=== PATIENT | female | born 1990 | race Caucasian/White ===

== ENCOUNTER → 2018-12-29 17:02 | Outpatient (CLI) | payer OTHER, SELFPAY ==
--- NOTE | 2018-12-29 17:08 | DI.RAD.S_ITS ---
PROCEDURE: XR LUMBAR SPINE 2-3V INDICATIONS: Low back pain with radiculopathy TECHNIQUE: 3 views of the lumbar spine were acquired. COMPARISON: [facility], , -SPINE 2-3 VIEWS, 06/06/2012, 21:12. FINDINGS: Bones: No fracture or focal osseous destruction. Straightening of the normal lumbar lordosis. Diffuse facet arthropathy. Sclerosis and spurring. Moderate narrowing of L5-S1 disc space which is unchanged. There is mild levocurvature. No interval change Soft tissues: Overlying bowel gas pattern is normal. No suspicious soft tissue calcifications. IMPRESSION: Unchanged examination with moderate L5-S1 disc degeneration as before, and straightening of the normal lumbar lordosis. Diffuse facet arthropathy Dictated by: Yvan Wadsworth M.D. on 12/30/2018 at 9:03 Approved by: Yvan Wadsworth M.D. on 12/30/2018 at 9:04
--- NOTE | 2018-12-29 17:08 | DI.RAD.S_ITS ---
PROCEDURE: XR SACRUM COCCYX MIN 2V INDICATIONS: Sacral spine tenderness TECHNIQUE: 3 views of the sacrum and coccyx acquired. COMPARISON: None. FINDINGS: Bones: No fractures or dislocations. No suspicious bony lesions. L5-S1 disc degeneration and facet arthropathy Soft tissues: Visualized bowel gas pattern is normal. No suspicious soft tissue densities. IMPRESSION: No fracture Dictated by: Yvan Wadsworth M.D. on 12/30/2018 at 9:04 Approved by: Yvan Wadsworth M.D. on 12/30/2018 at 9:05
== END ==
PROVIDERS: PCP Family Medicine; Visit Provider Registered Nurse
DX: M54.5 Low back pain (principal); M53.3 Sacrococcygeal disorders, not elsewhere classified; M51.17 Intervertebral disc disorders with radiculopathy, lumbosacral region; M47.27 Other spondylosis with radiculopathy, lumbosacral region
CPT/HCPCS: 72100; 72220

== ENCOUNTER 2019-01-23 13:00 | Outpatient (RCR) | payer OTHER, SELFPAY ==
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
--- NOTE | 2019-01-16 13:13 | PT.OPPOC ---
Current Diagnoses Radiculopathy, lumbar region (01/16/19) Provider Visit Care Team Role Provider Type Kim Devries MD Primary Care Provider Physician Specialty: Family Practice Address: [address] [place] [address], [id number] Email: [email or web address] KARTIK Mcclain Attending Provider Advanced Laster Hand Specialty: Medical Address: [address] [place] [address], [id number] Email: Plan Of Care PT-OP-T Assessment and Plan Start: 01/16/19 07:25 Freq: Status: Active Protocol: Document 01/16/19 09:52 [facility] (Rec: 01/16/19 13:13 [facility] [id number]) Physical Therapy Assessment Rehab Potential Rehabilitation Potential Good Evaluation Complexity Number of Personal Factors/Comorbidities 3 or More Number of Body Systems Impaired 4 or More Clinical Presentation at Evaluation Evolving Impairments Impairments Activity Tolerance Balance Functional Activities Functional Mobility Gait Pain Posture ROM Soft Tissue Mobility Strength Goals strength Short Term Goal (STG) Pt will be indep with HEP. STG Duration 02/16/19 Programming Engineer Goal (LTG) Pt will have 5/5 LE strength demonstrating improved core & LE control to allow her to return to her typical active lifestyle. LTG Duration 03/18/19 posture Programming Engineer Goal (LTG) Pt will present with good posture without cueing. LTG Duration 03/18/19 sleeping Halfway Goal (LTG) Pt will be able to sleep through the night without waking d/t pain. LTG Duration 03/18/19 walking Short Term Goal (STG) Pt will be able to walk through grocery stores without inc pain. STG Duration 02/16/19 Programming Engineer Goal (LTG) Pt will be able to go for up to 1.5 mile walks without inc in pain >1 point on VAS scale. LTG Duration 03/18/19 Assessment Summary Assessment Pt presents with LBP with radiculopathy d/t bulging discs and spinal stenosis. Pt has impaired posture, LE & core strength, ROM, and gait. This is limiting her typical activities and she is unable to participate in her typical ADLs and recreation without significantly increasing her pain. Pt would benefit from skilled PT to address these deficits. Physical Therapy Plan Frequency and Duration Frequency of Treatment 2x/Week Duration of Treatment 2 months Plan of Care Start Date 01/16/19 Plan of Care End Date 03/18/19 Therapeutic Interventions Therapeutic Interventions Aquatic Therapy Balance Training Coordination Training Gait Training Home Exercise Program Joint Mobilizations Manual Therapy Neuromuscular Re-education Patient/Caregiver Education Self-Care/Home Management Soft Tissue Mobilization Taping Therapeutic Activities Therapeutic Exercises Modalities Cold Pack/Ice Massage Electric Stimulation Hot Packs Iontophoresis Traction- Mechanical Ultrasound Next Visit Focus/Plan Next Note Type Treatment Note Next Visit Plan Advance core & ROM exercises, STM to LB & hip mobs Plan of Care Dates Plan of Care Start Date 01/16/19 Plan of Care End Date 03/18/19 Please Sign and Return: I have reviewed this Plan of Care and certify that the skilled therapy services above are required to meet the patient?s needs. Physician Signature Date Printed Name and Credentials Clinical Instructor Signature Printed Name and Credentials
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
== END 2019-02-27 08:24 | disposition home or self-care (01) ==
LOC: PHYS 13:00
PROVIDERS: PCP Family Medicine; Visit Provider Registered Nurse
DX: M54.16 Radiculopathy, lumbar region (principal)
CPT/HCPCS: 97110; 97140; 97162; 97530

== ENCOUNTER 2019-02-01 11:45 | Day surgery (SDC) | payer OTHER, SELFPAY ==
[2019-01-30 15:11] VITALS: BMI 38.0
[2019-02-01] VITALS (7 sets, daily range): BP systolic 126–141; BP diastolic 67–93; PULSE 88–131; RESP 10–16; TEMP 36.2–36.4; O2SAT 99–100; BMI 37.3
--- NOTE | 2019-02-01 | DI.RAD.S_ITS ---
PROCEDURE: XR LUMBAR SPINE 2-3V INDICATIONS: MICRODISCECTOMY TECHNIQUE: 2 views of the lumbar spine were acquired. COMPARISON: [facility], MR, MR LUMBAR SPINE WITHOUT CONTRAST, 01/06/2019, 7:12. [facility], CR, XR LUMBAR SPINE 2-3V, 12/29/2018, 17:12. FINDINGS: 2 spot fluoroscopic intraoperative images demonstrating a surgical instrument with the tip projecting in the posterior paraspinal soft tissues at the level of L5-S1 disc. Dictated by: Yvan Wadsworth M.D. on 02/01/2019 at 16:05 Approved by: Yvan Wadsworth M.D. on 02/01/2019 at 16:06
[2019-02-01] MEDS: LACTATED RINGERS 1,000 ML 42 ML IV ×2 (12:57→16:10)
--- NOTE | 2019-02-01 13:06 | SUR.PREOP ---
PT REPORTS HAS CONSTANT NUMBNESS IN BACK OF LEFT THIGH AND TINGLING IN LEFT FOOT.
[2019-02-01] MEDS: CEFAZOLIN 2 GM/100 ML FROZ.PIGGY IV (14:45)
--- NOTE | 2019-02-01 14:50 | PM.PREOP ---
Pre-operative Note Interval Note History & Physical reviewed/Exam performed by Physician: Yes Changes to H&P: No
--- NOTE | 2019-02-01 15:09 | SUR.OPER ---
Prone on spine table, head in foam head support, padded chest and pelvic supports, gel pad at knees, lower legs supported by pillows; nipples, genitalia and toes free of pressure, arms secured on foam padded arm boards at <90 degrees abduction. Tape over blanket at thigh secured to table.
[2019-02-01] MEDS: methylPREDNISolone acet DEPO 40 MG/ML VIAL INJ (15:20)
[2019-02-01] MEDS: BUPIVACAINE 0.25% W/ EPI (PF) 10 ML VIAL INJ (15:21)
--- NOTE | 2019-02-01 16:17 | P.OP_ITS ---
Operative Date/Time/Diagnoses Date of procedure: 02/01/19 Time of procedure: 15:14 Pre-op diagnosis: 1. L5-S1 disc herniation with radiculopathy 2. Spinal stenosis Post-op diagnosis: same Procedure & Clinicians Procedure: 1. L5-S1 microdiscectomy 2. Utilization of microsurgical technique and operating micrcoscope Same procedure as scheduled: Yes Indications: Patient has been having chronic back pain and worsening lumbar radiculopathy. Patient failed multiple conservative management with worsening pain weakness and numbness in her lower extremity. Patient has been having difficulty performing activity of daily living. After discussing risks benefits of treatment options, patient elected proceed with surgery. Surgeon: David Downs Human Resources Hr Representative: Martina Dixon Click Yes if Unassisted: No Anesthesia Type: General Operative Notes Closure Type: primary Specimen(s): none sent Procedure in detail: Patient was seen in the preoperative area. Risks and benefits of the surgery was discussed with the patient. Informed consent was obtained from the patient and placed in the chart. Surgical site was marked. Patient was taken to the operative room. General anesthesia was administered. Prophylactic antibiotic was given to the patient less than 30 min before the incision was made. Patient was placed into a prone position on the Lencho table. Patient's back was then prepped and draped in the sterile fashion. Time- out was performed at this time. Using AP and lateral C-arm imaging the interval between L5-S1 was identified and marked on patient's back. A 1 inch incision 1 in from midline was made on the left side. The fascia was incised in line with skin incision. Globus MARS retractors was placed inside the incision and docked onto the L5 lamina. Using microsurgical technique and operating microscope, a L5 laminotomy was performed using a Kerrison rongeur. Liagamentum flavum was resected at the site of the l aminotomy. The disc space at L5-S1 was identified. Microdiscectomy was performed by incising the annulus with #11 blade. Microcurettes and pituitary was used to removed herniated disc fragments of disc from the epidural space. After the microdiskectomy was completed, the area medial lateral superior and inferior to the area of the microdiskectomy was inspected and explored using a micro curette. No other impinging structure was identified. The wound was then irrigated with sterile normal saline. 40 mg Depo-Medrol was placed into the epidural space. The deep fascia was closed with 1-0 Vicryl. The subcutaneous tissue was closed with 2-0 Vicryl. The skin was closed with skin idalia. Patient tolerated the procedure well. There were no complications. Patient was transferred recovery room in stable condition. Complications: none Condition: stable Disposition: same day surgery Plan for aftercare: Discharge to home
[2019-02-01] MEDS: fentaNYL 100 MCG/2 ML INJ 50 MCG IV ×2 (16:26→16:39)
--- NOTE | 2019-02-01 16:38 | SUR.PHASEI ---
1620 late entry able to move feet, + sensation, weak when pressing feet against hands.
--- NOTE | 2019-02-01 16:41 | SUR.PHASEI ---
Pain unchanged, Rx repeated, HOB up, drinking water, calm, pleasant.
--- NOTE | 2019-02-01 16:49 | SUR.PHASEI ---
Stable, preparing to transfer to [facility].
[2019-02-01] MEDS: HYDROCODONE/ACET 5/325 TABLET 1 TAB PO (16:54)
--- NOTE | 2019-02-01 17:00 | SUR.PHASEI ---
1649 transferred to phase II care. crackers and water given prior to PO Rx. Skin warm and dry, resp even and regular. States that pain level remains elevated, but that she has chronic pain and tolerates it well. no moaning, grimace, or other non-verbal evidence of pain. No nausea. 1658 Dwain Kirby RN assumed care.
== END 2019-02-01 17:45 | disposition home or self-care (01) ==
PROVIDERS: PCP Family Medicine; Visit Provider Orthopaedic Surgery Orthopaedic Surgery of the Spine
PROC: (CPT 63030; principal; 2019-02-01 13:45)
DX: M51.16 Intervertebral disc disorders with radiculopathy, lumbar region (principal)
CPT/HCPCS: 63030; 72100; 76000; J0690; J1030; J1100; J1885; J2250; J2405; J2704; J3010

== ENCOUNTER 2019-07-24 09:45 | Outpatient (RCR) | payer OTHER, SELFPAY ==
--- NOTE | 2019-05-15 09:47 | PT.OIE ---
Current Diagnoses Intervertebral disc disorders with radiculopathy, lumbar region (05/15/19) Difficulty in walking, not elsewhere classified (05/15/19) Abnormal posture (05/15/19) Weakness (05/15/19) Past Medical History (Last Updated 01/30/19 @ 15:15 by Betsey Ledbetter RN) Herniated disc (Acute) Lumbar radiculopathy (Acute) Numbness (Acute) Right sided sciatica (Acute) Past Surgical History (Last Updated 01/30/19 @ 15:16 by Betsey Ledbetter RN) Status post tonsillectomy and adenoidectomy Provider Visit Care Team Role Provider Type Kim Devries MD Primary Care Provider Physician Specialty: Family Practice Address: [address] [place] [address], [id number] Email: [email or web address] David Downs MD Attending Provider Physician Specialty: Orthopedic Surgery Address: [address] [place] [address], [id number] Email: [email or web address] Physical Therapy Initial Evaluation PT-OP-A Visit Information Start: 05/11/19 17:24 Freq: Status: Active Protocol: Document 05/15/19 08:11 [facility] (Rec: 05/15/19 09:42 [facility] [id number]) Out-Patient Physical Therapy Visit Information Visit Information Visit Type Initial Evaluation Visit Start Time 08:15 Visit Stop Time 09:00 Total Visit Minutes 45 Visit Number 1 Number of BELLMAKER Visits 0 PT-OP-B Current Condition Start: 05/11/19 17:24 Freq: Status: Active Protocol: Document 05/15/19 08:11 [facility] (Rec: 05/15/19 09:42 [facility] [id number]) Current Condition History of Current Condition History of Current Condition Pt reports microdiscectomy L5- S1 February 03, 2019. SHe feels like she has gotten stronger, but still has pain and numbness into her LLE. Pt reports she is cleared for bending, lifting and twisting but still feels limited. Pt reports numbness is constant and pain comes and goes in leg and back pain is constant. Pt reports swelling at the end of the day. Pt reports she has been hiking and hurts after but she pushes through. Prior Treatments and Tests MRI next week Treatment Goals Patient/Caregiver Goals Be stronger, be able to move quicker, less swelling, be able to stand longer PT-OP-C Subjective Start: 05/11/19 17:24 Freq: Status: Active Protocol: Document 05/15/19 08:11 [facility] (Rec: 05/15/19 09:42 [facility] [id number]) OP-PT Pain Assessment Location LBP Pain Location Details LBP & leg Intensity 3 Scale Used Numeric (1 - 10) Description Aching Burning Shooting Description- Other can feel cold in leg; worst 7/10 LB; 8/10 LE Frequency Constant Radiating Location lat & post thigh & calf & lat & plantar foot pain; Variations/Patterns numbness buttock, tight and lat foot Pain Aggravating Factors Activity Standing Sitting Walking Bending Lifting Other Pain Aggravating Factors heat Pain Alleviating Factors Cold Other Pain Alleviating Factors change position PT-OP-F Manual Assessment Start: 05/11/19 17:24 Freq: Status: Active Protocol: Document 05/15/19 08:11 [facility] (Rec: 05/15/19 09:42 [facility] [id number]) Manual Assessments Soft Tissue Assessment Soft Tissue Mobility Assessment tightness and tenderness of L >R QL, ES, HS, calf Joint Mobility Assessment Joint Mobility Assessment L iliac crest higher than R PT-OP-G Mobility & Gait Start: 05/11/19 17:24 Freq: Status: Active Protocol: Document 05/15/19 08:11 [facility] (Rec: 05/15/19 09:43 [facility] [id number]) OP Gait Assessment Comments Gait Comments Pt amb with excessive transverse plane motion with pelvis. Overall dec push off PT-OP-J Posture/Palpation/Skin Start: 05/11/19 17:24 Freq: Status: Active Protocol: Document 05/15/19 08:11 [facility] (Rec: 05/15/19 09:42 [facility] [id number]) Posture Evaluation Martha Postural Classification System Martha Postural Classifications Anterior/Posterior Vertebral Compression Test 0 Elbow Flexion Test 3 Lumbar Protective Mechanism Left AP 0 Lumbar Protective Mechanism Right AP 0 Lumbar Protective Mechanism Left PA 0 Lumbar Protective Mechanism Right PA 1 Leg Swing Left Hard End Feel Leg Swing Right Hard End Feel PT-OP-K Range of Motion Start: 05/11/19 17:24 Freq: Status: Active Protocol: Document 05/15/19 08:11 [facility] (Rec: 05/15/19 09:42 [facility] [id number]) Lumbar Spine Range of Motion Lumbar Spine Active Degrees Flexion 48 Extension 10 Rotation Left 35 Rotation Right 39 Lateral Flexion Left 30 Lateral Flexion Right 24 PT-OP-L Special Tests Start: 05/11/19 17:24 Freq: Status: Active Protocol: Document 05/15/19 08:11 [facility] (Rec: 05/15/19 09:42 [facility] [id number]) Special Tests Lumbar Spine Special Tests Straight Leg Raise Test Results positive R Slump Test Results positive R PT-OP-M Strength Start: 05/11/19 17:24 Freq: Status: Active Protocol: Document 05/15/19 08:11 [facility] (Rec: 05/15/19 09:42 [facility] [id number]) Hip Strength Hip Manual Muscle Testing Right Flexion (L2) 5 Normal Extension (S1) 4- Good- Abduction 4- Good- External Rotation 4+ Good+ Internal Rotation 4- Good- Left Flexion (L2) 4- Good- Extension (S1) 3+ Fair+ Abduction 3+ Fair+ External Rotation 4- Good- Internal Rotation 4- Good- Knee Strength Knee Manual Muscle Testing Right Flexion (S2) 4+ Good+ Extension (L3) 5 Normal Left Flexion (S2) 4 Good Extension (L3) 4 Good Ankle/Foot Strength Ankle and Foot Manual Muscle Testing Right Dorsiflexion (L4) 5 Normal Plantarflexion (S1) 5 Normal Inversion 5 Normal Eversion (S1) 5 Normal Left Dorsiflexion (L4) 4 Good Plantarflexion (S1) 3- Fair- Inversion 4 Good Eversion (S1) 4 Good PT-OP-Q Treatments Start: 05/11/19 17:24 Freq: Status: Active Protocol: Document 05/15/19 08:11 [facility] (Rec: 05/15/19 09:42 [facility] [id number]) Therapeutic Exercises Supine Exercises LTR Side bilateral Reps/Minutes 5 Comments focus on sequential core activation post tilt Reps/Minutes 10 Comments max cueing Standing Exercises hip flexor stretch Side bilateral Reps/Minutes 30 sec Comments max cueing for pelvic position PT-OP-T Assessment and Plan Start: 05/11/19 17:24 Freq: Status: Active Protocol: Document 05/15/19 08:11 [facility] (Rec: 05/15/19 09:42 [facility] [id number]) Physical Therapy Assessment Rehab Potential Rehabilitation Potential Good Evaluation Complexity Number of Personal Factors/Comorbidities 1-2 Number of Body Systems Impaired 4 or More Clinical Presentation at Evaluation Evolving Impairments Impairments Activity Tolerance Functional Activities Functional Mobility Gait Pain Posture ROM Soft Tissue Mobility Strength Goals strength Short Term Goal (STG) Pt will be indep with HEP STG Duration 06/15/19 Telescope Operator Goal (LTG) Pt will have 5/5 LE strength & 4/5 EFT, LPM, and VCT to show improved core and LE stability to improve ability to participate activities. LTG Duration 08/15/19 posture Mcfp Goal (LTG) Pt will present with good posture without cueing. LTG Duration 08/15/19 walking Short Term Goal (STG) Pt will be able to stand 15 min at work to do an intake without inc pain. STG Duration 07/02/19 Mcfp Goal (LTG) Pt will be able to go on hikes iwth no greater than 3/10 pain during or after LTG Duration 08/15/19 Assessment Summary Assessment Pt presents with LBP with radicular pain and numbness that has been present since Nov and have not changed since she had microdiscectomy surgery on 02/03/19. She has improved in strength d/t increasing her activity since surgery despite pain. She is still limited in activity d/t pain and is doing activities like working and walking despite her inc in pain with these activities. She has impaired posture that is likely part of what inc her pain in standing, sitting and gait activities. She has overall dec core initiation and strength and would benefit from retraining with skilled PT. Physical Therapy Plan Frequency and Duration Frequency of Treatment 1x/Week Duration of Treatment 3 months Plan of Care Start Date 05/15/19 Plan of Care End Date 08/15/19 Therapeutic Interventions Therapeutic Interventions Aquatic Therapy Balance Training Gait Training Home Exercise Program Joint Mobilizations Manual Therapy Neuromuscular Re-education Patient/Caregiver Education Self-Care/Home Management Soft Tissue Mobilization Taping Therapeutic Activities Therapeutic Exercises Modalities Cold Pack/Ice Massage Electric Stimulation Hot Packs Traction- Mechanical Ultrasound Next Visit Focus/Plan Next Note Type Treatment Note Next Visit Plan Advance core stability, nerve glides L, STM to lumbar, glutes & HS & train with tenis ball & rolling pin.
--- NOTE | 2019-05-15 09:48 | PT.OPPOC ---
Current Diagnoses Intervertebral disc disorders with radiculopathy, lumbar region (05/15/19) Difficulty in walking, not elsewhere classified (05/15/19) Abnormal posture (05/15/19) Weakness (05/15/19) Provider Visit Care Team Role Provider Type Kim Devries MD Primary Care Provider Physician Specialty: Family Practice Address: [address] [place] [address], [address] Email: [email or web address] David Downs MD Attending Provider Physician Specialty: Orthopedic Surgery Address: [address] [place] [address], [address] Email: [email or web address] Plan Of Care PT-OP-T Assessment and Plan Start: 05/11/19 17:24 Freq: Status: Active Protocol: Document 05/15/19 08:11 [facility] (Rec: 05/15/19 09:42 [facility] [id number]) Physical Therapy Assessment Rehab Potential Rehabilitation Potential Good Evaluation Complexity Number of Personal Factors/Comorbidities 1-2 Number of Body Systems Impaired 4 or More Clinical Presentation at Evaluation Evolving Impairments Impairments Activity Tolerance Functional Activities Functional Mobility Gait Pain Posture ROM Soft Tissue Mobility Strength Goals strength Short Term Goal (STG) Pt will be indep with HEP STG Duration 06/15/19 [facility] Goal (LTG) Pt will have 5/5 LE strength & 4/5 EFT, LPM, and VCT to show improved core and LE stability to improve ability to participate activities. LTG Duration 08/15/19 posture Placer Miner Goal (LTG) Pt will present with good posture without cueing. LTG Duration 08/15/19 walking Short Term Goal (STG) Pt will be able to stand 15 min at work to do an intake without inc pain. STG Duration 07/02/19 Placer Miner Goal (LTG) Pt will be able to go on hikes iwth no greater than 3/10 pain during or after LTG Duration 08/15/19 Assessment Summary Assessment Pt presents with LBP with radicular pain and numbness that has been present since Nov and have not changed since she had microdiscectomy surgery on 02/03/19. She has improved in strength d/t increasing her activity since surgery despite pain. She is still limited in activity d/t pain and is doing activities like working and walking despite her inc in pain with these activities. She has impaired posture that is likely part of what inc her pain in standing, sitting and gait activities. She has overall dec core initiation and strength and would benefit from retraining with skilled PT. Physical Therapy Plan Frequency and Duration Frequency of Treatment 1x/Week Duration of Treatment 3 months Plan of Care Start Date 05/15/19 Plan of Care End Date 08/15/19 Therapeutic Interventions Therapeutic Interventions Aquatic Therapy Balance Training Gait Training Home Exercise Program Joint Mobilizations Manual Therapy Neuromuscular Re-education Patient/Caregiver Education Self-Care/Home Management Soft Tissue Mobilization Taping Therapeutic Activities Therapeutic Exercises Modalities Cold Pack/Ice Massage Electric Stimulation Hot Packs Traction- Mechanical Ultrasound Next Visit Focus/Plan Next Note Type Treatment Note Next Visit Plan Advance core stability, nerve glides L, STM to lumbar, glutes & HS & train with tenis ball & rolling pin. Plan of Care Dates Plan of Care Start Date 05/15/19 Plan of Care End Date 08/15/19 Please Sign and Return: I have reviewed this Plan of Care and certify that the skilled therapy services above are required to meet the patient?s needs. Physician Signature Date Printed Name and Credentials Clinical Instructor Signature Printed Name and Credentials
--- NOTE | 2019-05-29 09:44 | PT.OTN ---
Current Diagnoses Intervertebral disc disorders with radiculopathy, lumbar region (05/29/19) Difficulty in walking, not elsewhere classified (05/29/19) Abnormal posture (05/29/19) Weakness (05/29/19) Physical Therapy Treatment Note PT-OP-A Visit Information Start: 05/11/19 17:24 Freq: Status: Active Protocol: Document 05/29/19 08:12 [facility] (Rec: 05/29/19 09:44 [facility] [id number]) Out-Patient Physical Therapy Visit Information Visit Information Visit Type Treatment Note Visit Start Time 08:13 Visit Stop Time 09:00 Total Visit Minutes 47 Visit Number 1 Number of CERAMIC PLATER Visits 0 PT-OP-B Current Condition Start: 05/11/19 17:24 Freq: Status: Active Protocol: Document 05/15/19 08:11 [facility] (Rec: 05/15/19 09:42 [facility] [id number]) Current Condition History of Current Condition History of Current Condition Pt reports microdiscectomy L5- S1 February 03, 2019. SHe feels like she has gotten stronger, but still has pain and numbness into her LLE. Pt reports she is cleared for bending, lifting and twisting but still feels limited. Pt reports numbness is constant and pain comes and goes in leg and back pain is constant. Pt reports swelling at the end of the day. Pt reports she has been hiking and hurts after but she pushes through. Prior Treatments and Tests MRI next week Treatment Goals Patient/Caregiver Goals Be stronger, be able to move quicker, less swelling, be able to stand longer PT-OP-C Subjective Start: 05/11/19 17:24 Freq: Status: Active Protocol: Document 05/29/19 08:12 [facility] (Rec: 05/29/19 09:44 [facility] [id number]) OP-PT Subjective Patient Comments Patient Comments Pt reports compliance with HEP . PT-OP-F Manual Assessment Start: 05/11/19 17:24 Freq: Status: Active Protocol: Document 05/15/19 08:11 [facility] (Rec: 05/15/19 09:42 [facility] [id number]) Manual Assessments Soft Tissue Assessment Soft Tissue Mobility Assessment tightness and tenderness of L >R QL, ES, HS, calf Joint Mobility Assessment Joint Mobility Assessment L iliac crest higher than R PT-OP-G Mobility & Gait Start: 05/11/19 17:24 Freq: Status: Active Protocol: Document 05/15/19 08:11 [facility] (Rec: 05/15/19 09:43 [facility] [id number]) OP Gait Assessment Comments Gait Comments Pt amb with excessive transverse plane motion with pelvis. Overall dec push off PT-OP-J Posture/Palpation/Skin Start: 05/11/19 17:24 Freq: Status: Active Protocol: Document 05/15/19 08:11 [facility] (Rec: 05/15/19 09:42 [facility] [id number]) Posture Evaluation Martha Postural Classification System [facility] Postural Classifications Anterior/Posterior Vertebral Compression Test 0 Elbow Flexion Test 3 Lumbar Protective Mechanism Left AP 0 Lumbar Protective Mechanism Right AP 0 Lumbar Protective Mechanism Left PA 0 Lumbar Protective Mechanism Right PA 1 Leg Swing Left Hard End Feel Leg Swing Right Hard End Feel PT-OP-K Range of Motion Start: 05/11/19 17:24 Freq: Status: Active Protocol: Document 05/15/19 08:11 [facility] (Rec: 05/15/19 09:42 [facility] [id number]) Lumbar Spine Range of Motion Lumbar Spine Active Degrees Flexion 48 Extension 10 Rotation Left 35 Rotation Right 39 Lateral Flexion Left 30 Lateral Flexion Right 24 PT-OP-L Special Tests Start: 05/11/19 17:24 Freq: Status: Active Protocol: Document 05/15/19 08:11 [facility] (Rec: 05/15/19 09:42 [facility] [id number]) Special Tests Lumbar Spine Special Tests Straight Leg Raise Test Results positive R Slump Test Results positive R PT-OP-M Strength Start: 05/11/19 17:24 Freq: Status: Active Protocol: Document 05/15/19 08:11 [facility] (Rec: 05/15/19 09:42 [facility] [id number]) Hip Strength Hip Manual Muscle Testing Right Flexion (L2) 5 Normal Extension (S1) 4- Good- Abduction 4- Good- External Rotation 4+ Good+ Internal Rotation 4- Good- Left Flexion (L2) 4- Good- Extension (S1) 3+ Fair+ Abduction 3+ Fair+ External Rotation 4- Good- Internal Rotation 4- Good- Knee Strength Knee Manual Muscle Testing Right Flexion (S2) 4+ Good+ Extension (L3) 5 Normal Left Flexion (S2) 4 Good Extension (L3) 4 Good Ankle/Foot Strength Ankle and Foot Manual Muscle Testing Right Dorsiflexion (L4) 5 Normal Plantarflexion (S1) 5 Normal Inversion 5 Normal Eversion (S1) 5 Normal Left Dorsiflexion (L4) 4 Good Plantarflexion (S1) 3- Fair- Inversion 4 Good Eversion (S1) 4 Good PT-OP-Q Treatments Start: 05/11/19 17:24 Freq: Status: Active Protocol: Document 05/29/19 08:12 [facility] (Rec: 05/29/19 09:44 [facility] [id number]) Therapeutic Exercises Supine Exercises rufina test Supine Exercise Name stretch Side bilateral Reps/Minutes 30 sec LTR Side bilateral Reps/Minutes 5 Comments focus on segmental core activation BKFO Supine Exercise Name focus on core engagement Side bilateral Reps/Minutes 5 post tilt Reps/Minutes 10 Comments max cueing Sitting Exercises rolling out Sitting Exercise Name use of tennis ball & rolling pin Standing Exercises hip flexor stretch Standing Exercise Name pt only able to get calf stretch Side bilateral Reps/Minutes 30 sec Comments max cueing for pelvic position Therapeutic Activity Therapeutic Activity sitting Name work on unsupported sitting and edu on supported sitting positioning standing Name work on neutral posture Comments pictures taken Manual Therapy Treatment Soft Tissue Mobilization lumbar Body Location paraspinals & QL L>R Mobilization Type Myofascial Release Rolling Strumming Sustained Pressure Body Position Prone Comments superficial & moderate pressure PT-OP-T Assessment and Plan Start: 05/11/19 17:24 Freq: Status: Active Protocol: Document 05/29/19 08:12 [facility] (Rec: 05/29/19 09:44 [facility] [id number]) Physical Therapy Assessment Goals strength Short Term Goal (STG) Pt will be indep with HEP STG Duration 06/15/19 Mcfp Goal (LTG) Pt will have 5/5 LE strength & 4/5 EFT, LPM, and VCT to show improved core and LE stability to improve ability to participate activities. LTG Duration 08/15/19 posture Sheet Fed Printer Goal (LTG) Pt will present with good posture without cueing. LTG Duration 08/15/19 walking Short Term Goal (STG) Pt will be able to stand 15 min at work to do an intake without inc pain. STG Duration 07/02/19 Sheet Fed Printer Goal (LTG) Pt will be able to go on hiEversight iwth no greater than 3/10 pain during or after LTG Duration 08/15/19 Assessment Summary Assessment Pt able to go through postural correction well without inc pain. She required significant cueing with core exercsies for maintaining neutral pelvis and working on keeping core engaged. She had dec feeling of tightness in standing posture after STM. Physical Therapy Plan Frequency and Duration Frequency of Treatment 1x/Week Duration of Treatment 3 months Plan of Care Start Date 05/15/19 Plan of Care End Date 08/15/19 Next Visit Focus/Plan Next Note Type Treatment Note Next Visit Plan nerve glides to L, cont to work on soft tissue mobility of glutes, HS & lumbar region, advance core stability, work on dynamic sitting and standing (weight shift & acceptance); pelvic PNF patterns
--- NOTE | 2019-06-12 11:01 | PT.OTN ---
Current Diagnoses Intervertebral disc disorders with radiculopathy, lumbar region (06/12/19) Difficulty in walking, not elsewhere classified (06/12/19) Abnormal posture (06/12/19) Weakness (06/12/19) Physical Therapy Treatment Note PT-OP-A Visit Information Start: 05/11/19 17:24 Freq: Status: Active Protocol: Document 06/12/19 08:59 [facility] (Rec: 06/12/19 11:01 [facility] [id number]) Out-Patient Physical Therapy Visit Information Visit Information Visit Type Treatment Note Visit Start Time 09:00 Visit Stop Time 09:45 Total Visit Minutes 45 Visit Number 3 Number of PROFESSIONAL NURSING ASSISTANT Visits 0 PT-OP-B Current Condition Start: 05/11/19 17:24 Freq: Status: Active Protocol: Document 05/15/19 08:11 [facility] (Rec: 05/15/19 09:42 [facility] [id number]) Current Condition History of Current Condition History of Current Condition Pt reports microdiscectomy L5- S1 February 03, 2019. SHe feels like she has gotten stronger, but still has pain and numbness into her LLE. Pt reports she is cleared for bending, lifting and twisting but still feels limited. Pt reports numbness is constant and pain comes and goes in leg and back pain is constant. Pt reports swelling at the end of the day. Pt reports she has been hiking and hurts after but she pushes through. Prior Treatments and Tests MRI next week Treatment Goals Patient/Caregiver Goals Be stronger, be able to move quicker, less swelling, be able to stand longer PT-OP-C Subjective Start: 05/11/19 17:24 Freq: Status: Active Protocol: Document 06/12/19 08:59 [facility] (Rec: 06/12/19 11:01 [facility] [id number]) OP-PT Subjective Patient Comments Patient Comments Pt reports posture has been difficult to work on. REports she feels like she has been more successful in getting in a seated position but standing has been difficult for her to achieve. PT-OP-F Manual Assessment Start: 05/11/19 17:24 Freq: Status: Active Protocol: Document 05/15/19 08:11 [facility] (Rec: 05/15/19 09:42 [facility] [id number]) Manual Assessments Soft Tissue Assessment Soft Tissue Mobility Assessment tightness and tenderness of L >R QL, ES, HS, calf Joint Mobility Assessment Joint Mobility Assessment L iliac crest higher than R PT-OP-G Mobility & Gait Start: 05/11/19 17:24 Freq: Status: Active Protocol: Document 05/15/19 08:11 [facility] (Rec: 05/15/19 09:43 [facility] [id number]) OP Gait Assessment Comments Gait Comments Pt amb with excessive transverse plane motion with pelvis. Overall dec push off PT-OP-J Posture/Palpation/Skin Start: 05/11/19 17:24 Freq: Status: Active Protocol: Document 05/15/19 08:11 [facility] (Rec: 05/15/19 09:42 [facility] [id number]) Posture Evaluation Martha Postural Classification System Martha Postural Classifications Anterior/Posterior Vertebral Compression Test 0 Elbow Flexion Test 3 Lumbar Protective Mechanism Left AP 0 Lumbar Protective Mechanism Right AP 0 Lumbar Protective Mechanism Left PA 0 Lumbar Protective Mechanism Right PA 1 Leg Swing Left Hard End Feel Leg Swing Right Hard End Feel PT-OP-K Range of Motion Start: 05/11/19 17:24 Freq: Status: Active Protocol: Document 05/15/19 08:11 [facility] (Rec: 05/15/19 09:42 [facility] [id number]) Lumbar Spine Range of Motion Lumbar Spine Active Degrees Flexion 48 Extension 10 Rotation Left 35 Rotation Right 39 Lateral Flexion Left 30 Lateral Flexion Right 24 PT-OP-L Special Tests Start: 05/11/19 17:24 Freq: Status: Active Protocol: Document 05/15/19 08:11 [facility] (Rec: 05/15/19 09:42 [facility] [id number]) Special Tests Lumbar Spine Special Tests Straight Leg Raise Test Results positive R Slump Test Results positive R PT-OP-M Strength Start: 05/11/19 17:24 Freq: Status: Active Protocol: Document 05/15/19 08:11 [facility] (Rec: 05/15/19 09:42 [facility] [id number]) Hip Strength Hip Manual Muscle Testing Right Flexion (L2) 5 Normal Extension (S1) 4- Good- Abduction 4- Good- External Rotation 4+ Good+ Internal Rotation 4- Good- Left Flexion (L2) 4- Good- Extension (S1) 3+ Fair+ Abduction 3+ Fair+ External Rotation 4- Good- Internal Rotation 4- Good- Knee Strength Knee Manual Muscle Testing Right Flexion (S2) 4+ Good+ Extension (L3) 5 Normal Left Flexion (S2) 4 Good Extension (L3) 4 Good Ankle/Foot Strength Ankle and Foot Manual Muscle Testing Right Dorsiflexion (L4) 5 Normal Plantarflexion (S1) 5 Normal Inversion 5 Normal Eversion (S1) 5 Normal Left Dorsiflexion (L4) 4 Good Plantarflexion (S1) 3- Fair- Inversion 4 Good Eversion (S1) 4 Good PT-OP-Q Treatments Start: 05/11/19 17:24 Freq: Status: Active Protocol: Document 06/12/19 08:59 [facility] (Rec: 06/12/19 11:01 [facility] [id number]) Therapeutic Exercises Standing Exercises wall posture Standing Exercise Name wall roll up with 90/90 ER Side bilateral Reps/Minutes 15 gait at wall Standing Exercise Name for post depression L Reps/Minutes 10 sec x2 Comments no PF on L wall squat Standing Exercise Name focus on neutral core & keeping back against wall Reps/Minutes 15 Comments mini Therapeutic Activity Therapeutic Activity sitting Name work on unsupported sitting Comments progressed into facilitation for wt shift & wt accpetance into BLE standing Name work on neutral posture Comments pictures taken Manual Therapy Treatment Joint Mobilizations innominate Joint L Direction caudal & ER FM sacrum Joint sacrum Direction L UPA & caudal gliding FM hip Joint L Direction on axis ER FM Neuro Re-Education Treatment Other Activities PNF Details ant elevation & post depression Comments rhythmic initiation progressed to combo of isotonics, progressed to concentric reversals; progressed into pelvic patterns with LE pattern facilitation PT-OP-T Assessment and Plan Start: 05/11/19 17:24 Freq: Status: Active Protocol: Document 06/12/19 08:59 [facility] (Rec: 06/12/19 11:01 [facility] [id number]) Physical Therapy Assessment Goals strength Short Term Goal (STG) Pt will be indep with HEP STG Duration 06/15/19 Aircraft Motor Mechanic Goal (LTG) Pt will have 5/5 LE strength & 4/5 EFT, LPM, and VCT to show improved core and LE stability to improve ability to participate activities. LTG Duration 08/15/19 posture Halfway Goal (LTG) Pt will present with good posture without cueing. LTG Duration 08/15/19 walking Short Term Goal (STG) Pt will be able to stand 15 min at work to do an intake without inc pain. STG Duration 07/02/19 Aircraft Motor Mechanic Goal (LTG) Pt will be able to go on hikes iwth no greater than 3/10 pain during or after LTG Duration 08/15/19 Assessment Summary Assessment Pt required only min cueing for seated posture and was able to work towards wt shifting into LE for sit to stand with faciliation. Improved motion with dec rotation after faciliation of LLE. SHe has difficulty in standing achieving neutral positioning. She was significantly challenged by post depression of pelvis & had inc ROM and improved facilitation. Physical Therapy Plan Frequency and Duration Frequency of Treatment 1x/Week Duration of Treatment 3 months Plan of Care Start Date 05/15/19 Plan of Care End Date 08/15/19 Next Visit Focus/Plan Next Note Type Treatment Note Next Visit Plan nerve glides to L, soft tissue mobility of nerve pathway, work on standing posture as tolerated and progress to wt shift, advance core stability, work on hip flexors, cont to work PNF for gait
--- NOTE | 2019-06-26 11:01 | PT.OTN ---
Current Diagnoses Intervertebral disc disorders with radiculopathy, lumbar region (06/26/19) Difficulty in walking, not elsewhere classified (06/26/19) Abnormal posture (06/26/19) Weakness (06/26/19) Physical Therapy Treatment Note PT-OP-A Visit Information Start: 05/11/19 17:24 Freq: Status: Active Protocol: Document 06/26/19 13:36 [facility] (Rec: 06/26/19 19:07 [facility] [id number]) Out-Patient Physical Therapy Visit Information Visit Information Visit Type Treatment Note Visit Start Time 09:00 Visit Stop Time 09:45 Total Visit Minutes 45 Visit Number 4 Number of ACCOUNT LEADER Visits 0 PT-OP-B Current Condition Start: 05/11/19 17:24 Freq: Status: Active Protocol: Document 05/15/19 08:11 [facility] (Rec: 05/15/19 09:42 [facility] [id number]) Current Condition History of Current Condition History of Current Condition Pt reports microdiscectomy L5- S1 February 03, 2019. SHe feels like she has gotten stronger, but still has pain and numbness into her LLE. Pt reports she is cleared for bending, lifting and twisting but still feels limited. Pt reports numbness is constant and pain comes and goes in leg and back pain is constant. Pt reports swelling at the end of the day. Pt reports she has been hiking and hurts after but she pushes through. Prior Treatments and Tests MRI next week Treatment Goals Patient/Caregiver Goals Be stronger, be able to move quicker, less swelling, be able to stand longer PT-OP-C Subjective Start: 05/11/19 17:24 Freq: Status: Active Protocol: Document 06/26/19 13:36 [facility] (Rec: 06/26/19 19:07 [facility] [id number]) OP-PT Subjective Patient Comments Patient Comments Pt reports she has pain today. Notes she has been working on posture. PT-OP-F Manual Assessment Start: 05/11/19 17:24 Freq: Status: Active Protocol: Document 05/15/19 08:11 [facility] (Rec: 05/15/19 09:42 [facility] [id number]) Manual Assessments Soft Tissue Assessment Soft Tissue Mobility Assessment tightness and tenderness of L >R QL, ES, HS, calf Joint Mobility Assessment Joint Mobility Assessment L iliac crest higher than R PT-OP-G Mobility & Gait Start: 05/11/19 17:24 Freq: Status: Active Protocol: Document 05/15/19 08:11 [facility] (Rec: 05/15/19 09:43 [facility] [id number]) OP Gait Assessment Comments Gait Comments Pt amb with excessive transverse plane motion with pelvis. Overall dec push off PT-OP-J Posture/Palpation/Skin Start: 05/11/19 17:24 Freq: Status: Active Protocol: Document 05/15/19 08:11 [facility] (Rec: 05/15/19 09:42 [facility] [id number]) Posture Evaluation Martha Postural Classification System Martha Postural Classifications Anterior/Posterior Vertebral Compression Test 0 Elbow Flexion Test 3 Lumbar Protective Mechanism Left AP 0 Lumbar Protective Mechanism Right AP 0 Lumbar Protective Mechanism Left PA 0 Lumbar Protective Mechanism Right PA 1 Leg Swing Left Hard End Feel Leg Swing Right Hard End Feel PT-OP-K Range of Motion Start: 05/11/19 17:24 Freq: Status: Active Protocol: Document 05/15/19 08:11 [facility] (Rec: 05/15/19 09:42 [facility] [id number]) Lumbar Spine Range of Motion Lumbar Spine Active Degrees Flexion 48 Extension 10 Rotation Left 35 Rotation Right 39 Lateral Flexion Left 30 Lateral Flexion Right 24 PT-OP-L Special Tests Start: 05/11/19 17:24 Freq: Status: Active Protocol: Document 05/15/19 08:11 [facility] (Rec: 05/15/19 09:42 [facility] [id number]) Special Tests Lumbar Spine Special Tests Straight Leg Raise Test Results positive R Slump Test Results positive R PT-OP-M Strength Start: 05/11/19 17:24 Freq: Status: Active Protocol: Document 05/15/19 08:11 [facility] (Rec: 05/15/19 09:42 [facility] [id number]) Hip Strength Hip Manual Muscle Testing Right Flexion (L2) 5 Normal Extension (S1) 4- Good- Abduction 4- Good- External Rotation 4+ Good+ Internal Rotation 4- Good- Left Flexion (L2) 4- Good- Extension (S1) 3+ Fair+ Abduction 3+ Fair+ External Rotation 4- Good- Internal Rotation 4- Good- Knee Strength Knee Manual Muscle Testing Right Flexion (S2) 4+ Good+ Extension (L3) 5 Normal Left Flexion (S2) 4 Good Extension (L3) 4 Good Ankle/Foot Strength Ankle and Foot Manual Muscle Testing Right Dorsiflexion (L4) 5 Normal Plantarflexion (S1) 5 Normal Inversion 5 Normal Eversion (S1) 5 Normal Left Dorsiflexion (L4) 4 Good Plantarflexion (S1) 3- Fair- Inversion 4 Good Eversion (S1) 4 Good PT-OP-Q Treatments Start: 05/11/19 17:24 Freq: Status: Active Protocol: Document 06/26/19 13:36 [facility] (Rec: 06/26/19 19:07 [facility] [id number]) Therapeutic Exercises Standing Exercises wall posture Standing Exercise Name wall roll up with 90/90 ER Side bilateral Reps/Minutes 15 wall squat Standing Exercise Name focus on neutral core & keeping back against wall Reps/Minutes 15 Comments mini Therapeutic Activity Therapeutic Activity standing Name work on neutral posture Comments progressed to wt shifting to wt acceptance in standing; worked on approprliate wt of B LE In SLS position Manual Therapy Treatment Soft Tissue Mobilization lumbar Body Location paraspinals & QL R>L Mobilization Type Myofascial Release,Rolling, Strumming,Sustained Pressure Body Position Prone Comments superficial & moderate pressure; prone & seated with flex PT-OP-T Assessment and Plan Start: 05/11/19 17:24 Freq: Status: Active Protocol: Document 06/26/19 13:36 [facility] (Rec: 06/26/19 19:07 [facility] [id number]) Physical Therapy Assessment Goals strength Short Term Goal (STG) Pt will be indep with HEP STG Duration 06/15/19 Snf Goal (LTG) Pt will have 5/5 LE strength & 4/5 EFT, LPM, and VCT to show improved core and LE stability to improve ability to participate activities. LTG Duration 08/15/19 posture [employer] Teacher Goal (LTG) Pt will present with good posture without cueing. LTG Duration 08/15/19 walking Short Term Goal (STG) Pt will be able to stand 15 min at work to do an intake without inc pain. STG Duration 07/02/19 [employer] Human[employer] Teacher Goal (LTG) Pt will be able to go on hikes iwth no greater than 3/10 pain during or after LTG Duration 08/15/19 Assessment Summary Assessment Pt had greater ease with getting into more neutral lumbar spine posture after manual treatment. She had significant difficulty with wt shifting into LE without lumbar ext or rotation. She had significant improvement in ability to do wall squat and wall posture exercise appropriately this session. Physical Therapy Plan Frequency and Duration Frequency of Treatment 1x/Week Duration of Treatment 3 months Plan of Care Start Date 05/15/19 Plan of Care End Date 08/15/19 Next Visit Focus/Plan Next Note Type Treatment Note Next Visit Plan tape for posture, cont to review standing posture and working into wt shfit and acceptance with gait
--- NOTE | 2019-07-10 11:55 | PT.OTN ---
Current Diagnoses Intervertebral disc disorders with radiculopathy, lumbar region (07/10/19) Difficulty in walking, not elsewhere classified (07/10/19) Abnormal posture (07/10/19) Weakness (07/10/19) Physical Therapy Treatment Note PT-OP-A Visit Information Start: 05/11/19 17:24 Freq: Status: Active Protocol: Document 07/10/19 11:45 [facility] (Rec: 07/10/19 11:55 [facility] [id number]) Out-Patient Physical Therapy Visit Information Visit Information Visit Type Treatment Note Visit Start Time 09:48 Visit Stop Time 10:30 Total Visit Minutes 42 Visit Number 5 Number of CANDY MAKER HELPER Visits 0 PT-OP-B Current Condition Start: 05/11/19 17:24 Freq: Status: Active Protocol: Document 05/15/19 08:11 [facility] (Rec: 05/15/19 09:42 [facility] [id number]) Current Condition History of Current Condition History of Current Condition Pt reports microdiscectomy L5- S1 February 03, 2019. SHe feels like she has gotten stronger, but still has pain and numbness into her LLE. Pt reports she is cleared for bending, lifting and twisting but still feels limited. Pt reports numbness is constant and pain comes and goes in leg and back pain is constant. Pt reports swelling at the end of the day. Pt reports she has been hiking and hurts after but she pushes through. Prior Treatments and Tests MRI next week Treatment Goals Patient/Caregiver Goals Be stronger, be able to move quicker, less swelling, be able to stand longer PT-OP-C Subjective Start: 05/11/19 17:24 Freq: Status: Active Protocol: Document 07/10/19 11:45 [facility] (Rec: 07/10/19 11:55 [facility] [id number]) OP-PT Subjective Patient Comments Patient Comments Pt reports she has been working on her wt shift and other mat exercises. PT-OP-F Manual Assessment Start: 05/11/19 17:24 Freq: Status: Active Protocol: Document 05/15/19 08:11 [facility] (Rec: 05/15/19 09:42 [facility] [id number]) Manual Assessments Soft Tissue Assessment Soft Tissue Mobility Assessment tightness and tenderness of L >R QL, ES, HS, calf Joint Mobility Assessment Joint Mobility Assessment L iliac crest higher than R PT-OP-G Mobility & Gait Start: 05/11/19 17:24 Freq: Status: Active Protocol: Document 05/15/19 08:11 [facility] (Rec: 05/15/19 09:43 [facility] [id number]) OP Gait Assessment Comments Gait Comments Pt amb with excessive transverse plane motion with pelvis. Overall dec push off PT-OP-J Posture/Palpation/Skin Start: 05/11/19 17:24 Freq: Status: Active Protocol: Document 05/15/19 08:11 [facility] (Rec: 05/15/19 09:42 [facility] [id number]) Posture Evaluation Martha Postural Classification System Martha Postural Classifications Anterior/Posterior Vertebral Compression Test 0 Elbow Flexion Test 3 Lumbar Protective Mechanism Left AP 0 Lumbar Protective Mechanism Right AP 0 Lumbar Protective Mechanism Left PA 0 Lumbar Protective Mechanism Right PA 1 Leg Swing Left Hard End Feel Leg Swing Right Hard End Feel PT-OP-K Range of Motion Start: 05/11/19 17:24 Freq: Status: Active Protocol: Document 05/15/19 08:11 [facility] (Rec: 05/15/19 09:42 [facility] [id number]) Lumbar Spine Range of Motion Lumbar Spine Active Degrees Flexion 48 Extension 10 Rotation Left 35 Rotation Right 39 Lateral Flexion Left 30 Lateral Flexion Right 24 PT-OP-L Special Tests Start: 05/11/19 17:24 Freq: Status: Active Protocol: Document 05/15/19 08:11 [facility] (Rec: 05/15/19 09:42 [facility] [id number]) Special Tests Lumbar Spine Special Tests Straight Leg Raise Test Results positive R Slump Test Results positive R PT-OP-M Strength Start: 05/11/19 17:24 Freq: Status: Active Protocol: Document 05/15/19 08:11 [facility] (Rec: 05/15/19 09:42 [facility] [id number]) Hip Strength Hip Manual Muscle Testing Right Flexion (L2) 5 Normal Extension (S1) 4- Good- Abduction 4- Good- External Rotation 4+ Good+ Internal Rotation 4- Good- Left Flexion (L2) 4- Good- Extension (S1) 3+ Fair+ Abduction 3+ Fair+ External Rotation 4- Good- Internal Rotation 4- Good- Knee Strength Knee Manual Muscle Testing Right Flexion (S2) 4+ Good+ Extension (L3) 5 Normal Left Flexion (S2) 4 Good Extension (L3) 4 Good Ankle/Foot Strength Ankle and Foot Manual Muscle Testing Right Dorsiflexion (L4) 5 Normal Plantarflexion (S1) 5 Normal Inversion 5 Normal Eversion (S1) 5 Normal Left Dorsiflexion (L4) 4 Good Plantarflexion (S1) 3- Fair- Inversion 4 Good Eversion (S1) 4 Good PT-OP-Q Treatments Start: 05/11/19 17:24 Freq: Status: Active Protocol: Document 07/10/19 11:45 [facility] (Rec: 07/10/19 11:55 [facility] [id number]) Therapeutic Exercises Supine Exercises bridge Supine Exercise Name focus on core & glutes Side bilateral Reps/Minutes 10 Comments started with faciliated traction hip flex Supine Exercise Name marching with focus on core tightness Side bilateral Reps/Minutes 10 ea heel slides Supine Exercise Name with focus on core tightness Side bilateral Reps/Minutes 10 ea Therapeutic Activity Therapeutic Activity standing Name work on neutral posture Comments progressed to wt shifting to wt acceptance in standing; worked on approprliate wt of B LE In SLS position with use of counter Manual Therapy Treatment Soft Tissue Mobilization piriformis Body Location L Mobilization Type Rolling,Sustained Pressure lumbar Body Location paraspinals & QL R>L Mobilization Type Myofascial Release,Rolling, Strumming,Sustained Pressure Body Position Prone Comments superficial & moderate pressure; prone Joint Mobilizations innominate Joint L Direction caudal & B ER FM sacrum Joint sacrum Direction L UPA & caudal gliding FM hip Joint B Direction on axis ER FM Comments w/neuro re edu facilated manually for ER Taping posture Body Location I strip of white Saab tape for posture PT-OP-T Assessment and Plan Start: 05/11/19 17:24 Freq: Status: Active Protocol: Document 07/10/19 11:45 [facility] (Rec: 07/10/19 11:55 [facility] [id number]) Physical Therapy Assessment Goals strength Short Term Goal (STG) Pt will be indep with HEP STG Duration 06/15/19 Custodial Goal (LTG) Pt will have 5/5 LE strength & 4/5 EFT, LPM, and VCT to show improved core and LE stability to improve ability to participate activities. LTG Duration 08/15/19 posture [employer] Goal (LTG) Pt will present with good posture without cueing. LTG Duration 08/15/19 walking Short Term Goal (STG) Pt will be able to stand 15 min at work to do an intake without inc pain. STG Duration 07/02/19 Custodial Goal (LTG) Pt will be able to go on hikes iwth no greater than 3/10 pain during or after LTG Duration 08/15/19 Assessment Summary Assessment Pt able to tolerate progression of core exercises without inc in pain when cueing for appropriate form & core faciliation. She is doing better with wt shift and acceptance in standing but unable to get to full acceptance into LLE especially d/t weakenss and dec stability. Improving ability to self postural correct. Physical Therapy Plan Frequency and Duration Frequency of Treatment 1x/Week Duration of Treatment 3 months Plan of Care Start Date 05/15/19 Plan of Care End Date 08/15/19 Next Visit Focus/Plan Next Note Type Treatment Note Next Visit Plan assess how taping went, cont to work on wt acceptance, PNF patterns in s/l for gait, advance core exercises if tolerated
--- NOTE | 2019-07-24 18:52 | PT.OTN ---
Current Diagnoses Intervertebral disc disorders with radiculopathy, lumbar region (07/24/19) Difficulty in walking, not elsewhere classified (07/24/19) Abnormal posture (07/24/19) Weakness (07/24/19) Physical Therapy Treatment Note PT-OP-A Visit Information Start: 05/11/19 17:24 Freq: Status: Active Protocol: Document 07/24/19 09:45 [facility] (Rec: 07/24/19 18:52 [facility] [id number]) Out-Patient Physical Therapy Visit Information Visit Information Visit Type Treatment Note Visit Start Time 09:47 Visit Stop Time 10:27 Total Visit Minutes 40 Visit Number 6 Number of CNA CAREGIVER Visits 0 PT-OP-B Current Condition Start: 05/11/19 17:24 Freq: Status: Active Protocol: Document 05/15/19 08:11 [facility] (Rec: 05/15/19 09:42 [facility] [id number]) Current Condition History of Current Condition History of Current Condition Pt reports microdiscectomy L5- S1 February 03, 2019. SHe feels like she has gotten stronger, but still has pain and numbness into her LLE. Pt reports she is cleared for bending, lifting and twisting but still feels limited. Pt reports numbness is constant and pain comes and goes in leg and back pain is constant. Pt reports swelling at the end of the day. Pt reports she has been hiking and hurts after but she pushes through. Prior Treatments and Tests MRI next week Treatment Goals Patient/Caregiver Goals Be stronger, be able to move quicker, less swelling, be able to stand longer PT-OP-C Subjective Start: 05/11/19 17:24 Freq: Status: Active Protocol: Document 07/24/19 09:45 [facility] (Rec: 07/24/19 12:06 [facility] [id number]) OP-PT Subjective Patient Comments Patient Comments Pt reports she feels like taping helped. Notes she feels like she has had less spasms the last couple weeks. Patient Reported Progress Improving PT-OP-F Manual Assessment Start: 05/11/19 17:24 Freq: Status: Active Protocol: Document 05/15/19 08:11 [facility] (Rec: 05/15/19 09:42 [facility] [id number]) Manual Assessments Soft Tissue Assessment Soft Tissue Mobility Assessment tightness and tenderness of L >R QL, ES, HS, calf Joint Mobility Assessment Joint Mobility Assessment L iliac crest higher than R PT-OP-G Mobility & Gait Start: 05/11/19 17:24 Freq: Status: Active Protocol: Document 05/15/19 08:11 [facility] (Rec: 05/15/19 09:43 [facility] [id number]) OP Gait Assessment Comments Gait Comments Pt amb with excessive transverse plane motion with pelvis. Overall dec push off PT-OP-J Posture/Palpation/Skin Start: 05/11/19 17:24 Freq: Status: Active Protocol: Document 05/15/19 08:11 [facility] (Rec: 05/15/19 09:42 [facility] [id number]) Posture Evaluation Martha Postural Classification System Martha Postural Classifications Anterior/Posterior Vertebral Compression Test 0 Elbow Flexion Test 3 Lumbar Protective Mechanism Left AP 0 Lumbar Protective Mechanism Right AP 0 Lumbar Protective Mechanism Left PA 0 Lumbar Protective Mechanism Right PA 1 Leg Swing Left Hard End Feel Leg Swing Right Hard End Feel PT-OP-K Range of Motion Start: 05/11/19 17:24 Freq: Status: Active Protocol: Document 05/15/19 08:11 [facility] (Rec: 05/15/19 09:42 [facility] [id number]) Lumbar Spine Range of Motion Lumbar Spine Active Degrees Flexion 48 Extension 10 Rotation Left 35 Rotation Right 39 Lateral Flexion Left 30 Lateral Flexion Right 24 PT-OP-L Special Tests Start: 05/11/19 17:24 Freq: Status: Active Protocol: Document 05/15/19 08:11 [facility] (Rec: 05/15/19 09:42 [facility] [id number]) Special Tests Lumbar Spine Special Tests Straight Leg Raise Test Results positive R Slump Test Results positive R PT-OP-M Strength Start: 05/11/19 17:24 Freq: Status: Active Protocol: Document 05/15/19 08:11 [facility] (Rec: 05/15/19 09:42 [facility] [id number]) Hip Strength Hip Manual Muscle Testing Right Flexion (L2) 5 Normal Extension (S1) 4- Good- Abduction 4- Good- External Rotation 4+ Good+ Internal Rotation 4- Good- Left Flexion (L2) 4- Good- Extension (S1) 3+ Fair+ Abduction 3+ Fair+ External Rotation 4- Good- Internal Rotation 4- Good- Knee Strength Knee Manual Muscle Testing Right Flexion (S2) 4+ Good+ Extension (L3) 5 Normal Left Flexion (S2) 4 Good Extension (L3) 4 Good Ankle/Foot Strength Ankle and Foot Manual Muscle Testing Right Dorsiflexion (L4) 5 Normal Plantarflexion (S1) 5 Normal Inversion 5 Normal Eversion (S1) 5 Normal Left Dorsiflexion (L4) 4 Good Plantarflexion (S1) 3- Fair- Inversion 4 Good Eversion (S1) 4 Good PT-OP-Q Treatments Start: 05/11/19 17:24 Freq: Status: Active Protocol: Document 07/24/19 09:45 [facility] (Rec: 07/24/19 18:52 [facility] [id number]) Therapeutic Exercises Supine Exercises bridge Supine Exercise Name focus on core & glutes Side bilateral Reps/Minutes 8 Comments started with faciliated traction hip flex Supine Exercise Name marching with focus on core progressed to SLR Side bilateral Reps/Minutes 10 ea heel slides Supine Exercise Name with focus on core tightness Side bilateral Reps/Minutes 5 TAbd engagement Supine Exercise Name w/ knees at 90/90 position Reps/Minutes 15 sec hold Standing Exercises wall posture Standing Exercise Name wall roll up with 90/90 ER Side bilateral Reps/Minutes 15 Other Exercises lindsay pose Other Exercise Name cat camel then lindsay pose with back in cat position Therapeutic Activity Therapeutic Activity standing Name work on neutral posture Comments in mirror then taping & edu on self taping for posture Manual Therapy Treatment Soft Tissue Mobilization lumbar Body Location paraspinals & QL R>L Mobilization Type Myofascial Release,Rolling, Strumming,Sustained Pressure Body Position Prone Comments superficial & moderate pressure; prone Joint Mobilizations sacrum Joint sacrum Direction caudal gliding FM Neuro Re-Education Treatment Other Activities PNF Details ant elevation & post depression Comments L rhythmic initiation progressed to COI PT-OP-T Assessment and Plan Start: 05/11/19 17:24 Freq: Status: Active Protocol: Document 07/24/19 09:45 [facility] (Rec: 07/24/19 12:06 [facility] [id number]) Physical Therapy Assessment Goals strength Short Term Goal (STG) Pt will be indep with HEP STG Duration 06/15/19 School Aide Goal (LTG) Pt will have 5/5 LE strength & 4/5 EFT, LPM, and VCT to show improved core and LE stability to improve ability to participate activities. LTG Duration 08/15/19 posture School Aide Goal (LTG) Pt will present with good posture without cueing. LTG Duration 08/15/19 walking Short Term Goal (STG) Pt will be able to stand 15 min at work to do an intake without inc pain. STG Duration 07/02/19 School Aide Goal (LTG) Pt will be able to go on hikes iwth no greater than 3/10 pain during or after LTG Duration 08/15/19 Assessment Summary Assessment Pt able to tolerate progression of core exercises and was able to assume good posture with min cueing. She does have some pulling in her back in that position, but it improves with manual treatment . pt shown how she has improved stability wtih VCT and LPM with corrected posture . Physical Therapy Plan Frequency and Duration Frequency of Treatment 1x/Week Duration of Treatment 3 months Plan of Care Start Date 05/15/19 Plan of Care End Date 08/15/19 Next Visit Focus/Plan Next Note Type Progress Note Next Visit Plan work on wt acceptance & PNF patterns, advance core as tolerated
== END 2019-09-07 12:55 ==
LOC: PHYS 09:45
PROVIDERS: PCP Family Medicine; Visit Provider Orthopaedic Surgery Orthopaedic Surgery of the Spine
DX: M51.16 Intervertebral disc disorders with radiculopathy, lumbar region (principal); R29.3 Abnormal posture; R53.1 Weakness; R26.2 Difficulty in walking, not elsewhere classified
CPT/HCPCS: 97110; 97112; 97140; 97162; 97530

== ENCOUNTER → 2019-08-16 14:47 | Outpatient (CLI) | payer OTHER, SELFPAY ==
[2019-08-16 15:09] LABS: Add Manual Diff / Slide Review NO; Basophils Absolute Auto 200 /uL (0-100); Basophils Percent Auto 1.4 % (0-2); Eosinophils Absolute Auto 100 /uL (0-450); Hematocrit 39.3 % (36-46); Lymphocytes Absolute Auto 3800 /uL (1100-4500); Lymphocytes Percent Auto 34.4 % (25-40); Mean Corpuscular HGB Conc 33.1 % (30-36); Mean Corpuscular Hemoglobin 30.4 PG (26-34); Monocytes Absolute Auto 600 /uL (0-900); Monocytes Percent Auto 5.1 % (3-14); Neutrophils Absolute Auto 6400 /uL (1500-7000); Neutrophils Percent Auto 58.1 % (50-75); Platelet Count 278 X10^3/uL (150-400); Red Blood Cell Count 4.27 X10^6/uL (4.0-5.2); Red Cell Distribution Width 14.2 % (11.6-14.8)
[2019-08-16 17:02] LABS: Blood Urea Nitrogen 8 mg/dL (7-17); Calcium 9.6 mg/dL (8.4-10.2); Carbon Dioxide 25 mmol/L (22-32); Chloride 103 mmol/L (98-107); Estimated Glomerular Filt Rate > 60.0 mL/min (>60); Glucose 79 mg/dL (70-100); HEMOLYSIS < 15 (0-50); Sodium 138 mmol/L (137-145)
== END ==
PROVIDERS: PCP Family Medicine; Visit Provider Orthopaedic Surgery Orthopaedic Surgery of the Spine
DX: Z01.818 Encounter for other preprocedural examination (principal)
CPT/HCPCS: 36415; 80048; 85025

== ENCOUNTER 2019-10-02 08:54 | Inpatient (IN) | payer OTHER, SELFPAY ==
[2019-09-18 09:31] VITALS: BMI 40.9
[2019-10-02] VITALS (14 sets, daily range): BP systolic 115–147; BP diastolic 65–92; PULSE 101–135; RESP 11–20; TEMP 36.2–36.9; O2SAT 96–99; BMI 41.1
--- NOTE | 2019-10-02 | DI.RAD.S_ITS ---
PROCEDURE: XR LUMBAR SPINE 2-3V INDICATIONS: L5-S1 TLIF TECHNIQUE: 2 operative views of the lumbar spine were acquired. COMPARISON: [facility], , XR LUMBAR SPINE 2-3V, 02/01/2019, 15:06. FINDINGS: AP and lateral operative views of the spine demonstrate posterolateral kathrine and pedicle screw fixation at L5-S1 with interbody fusion prosthesis. No evidence of hardware failure or loosening. No evidence of complications. IMPRESSION: Operative fluoroscopy utilized during performance of a L5-S1 fusion surgery. Dictated by: Levon Malcolm M.D. on 10/02/2019 at 14:14 Approved by: Levon Malcolm M.D. on 10/02/2019 at 14:15
[2019-10-02] MEDS: LACTATED RINGERS 1,000 ML 42 ML IV ×2 (10:00→13:42)
--- NOTE | 2019-10-02 10:56 | PM.PREOP ---
Pre-operative Note Interval Note History & Physical reviewed/Exam performed by Physician: Yes Changes to H&P: No
[2019-10-02] MEDS: CEFAZOLIN 2 GM/100 ML FROZ.PIGGY IV ×2 (11:45→20:45)
--- NOTE | 2019-10-02 12:27 | SUR.OPER ---
Prone on spine table, head in foam head support, padded chest and pelvic supports, gel pad at knees and between ankles, lower legs supported by pillows; nipples, genitalia and toes free of pressure, arms secured on foam padded arm boards at <90 degrees abduction. Tape over blanket at thigh secured to table.
[2019-10-02] MEDS: BUPIVACAINE LIPOSOME 266 MG/20 ML VIAL INJ (12:41)
[2019-10-02] MEDS: BUPIVACAINE 0.25% W/ EPI (PF) 10 ML VIAL 20 ML INJ (12:43)
--- NOTE | 2019-10-02 14:08 | P.OP_ITS ---
Operative Date/Time/Diagnoses Date of procedure: 10/02/19 Time of procedure: 12:08 Pre-op diagnosis: 1. L5-S1 spinal stenosis 2. L5-S1 facet cyst with radiculopathy 3. Hx of L5-S1 microdiscectomy with epidural scarring Post-op diagnosis: same Procedure & Clinicians Procedure: 1. L5-S1 Postero-lateral and posterior interbody fusion 2. L5-S1 interbody cage placement. 3. L5-S1 decompressive laminectomy with bilateral facetecomies 4. L5-S1 Posterior non-segmental instrumentation 5. [place] of bone marrow from iliac crest 6. Utilization of microsurgical technique and operating microscope Same procedure as scheduled: No Indications: Patient has been having chronic back pain and worsening lumbar radiculopathy. Patient failed multiple conservative management with worsening pain weakness and numbness in her lower extremity. Patient has been having difficulty performing activity of daily living. After discussing risks benefits of treatment options, patient elected proceed with surgery. Surgeon: David Downs Supervisor [employer]: Martina Dixon Click Yes if Unassisted: No Anesthesia Type: General Operative Notes Closure Type: primary Specimen(s): none sent Prosthetic devices, grafts, tissues, transplants, or devices: Globus revolve screws, Rise cage Estimated Blood Loss (mL): 50 Blood products transfused: none Procedure in detail: Patient was seen in the preoperative area. Risks and benefits of the surgery was discussed with the patient. Informed consent was obtained from the patient and placed in the chart. Surgical site was marked. Patient was taken to the operative room. General anesthesia was administered. Prophylactic antibiotic was given to the patient less than 30 min before the incision was made. Patient was placed into a prone position on the Lencho table. Patient's back was then prepped and draped in the sterile fashion. Time- out was performed at this time. Using AP and lateral C-arm imaging the interval between L5-S1 was identified and marked on patient's back. A 2 inch incision 2 in from midline was made on the left side first. The fascia was incised in line with skin incision. Globus MARS retractors was placed inside the incision and docked onto the L5 lamina. Using microsurgical technique and operating microscope, a L5 laminectomy and L5-S1 facetectomy was performed using a Kerrison rongeur. Patient was found to have epidural scarring with a facet cyst on the L5-S1 level impinging on the L5 nerve root. After the laminectomy facetectomy was completed there was no impinging centrally or in the neural foramen at L5-S1 level. The disc space at L5-S1 was identified. And a total diskectomy was performed at L5-S1 level. The endplates were decorticated using a rasp and shaver. The total diskectomy and decortication was performed at L5-S1 level in order to to accomplish a L5-S1 fusion. The local bone from the laminectomy and facetectomy was saved for local bone grafting. After the total diskectomy and decortication was completed, Bio4 bone graft material was combined with local bone that was harvested earlier. At this time, a separate skin is incision was made over the iliac crest. A Jamshidi needle was inserted into the iliac crest through a separate skin incision. 5 cc of bone marrow aspiration was obtained through the separate skin incision using a Jamshidi needle from the iliac crest. The bone marrow aspiration was combined with local bone and the Bio4 bone grafting material. The bone grafting material was placed into the L5-S1 interbody space along with a expandable cage. The cage was expanded to its maximum height using the torque limiting screwdriver. At this time a mirror image incision was made on the right side. The fascia was incised in line with the skin incision. Globus MARS retractor was inserted and docked onto the L5-S1 posterolateral gutter. Using the power drill, posterior- lateral decortication was performed at L5-S1 level until bleeding cortical bone was identified. The remaining bone grafting material was placed into the L5-S1 posterior lateral gutter he order to accomplish posterolateral fusion at the L5- S1 level. Using the double C-arm technique, pedicle screws were placed into the L5, S1 pedicles bilaterally. This was done by placing the Jamshidi needle into the pedicles, then placing the guidewires over the Jamshidi needle, and finally placing the cannulated screws over the guidewires bilaterally. After the pedicle screws were placed, 2 titanium rods was locked into the heads of the pedicle screws using locking caps and torque limiting screwdriver. After all the hardware was placed, and confirmed with AP and lateral C-arm imaging, the wound was then irrigated with sterile normal saline and packed with Ray-Frankie gauze for 3 min to accomplish hemostasis. After the gauze was removed the deep fascia was closed with #1 Vicryl suture. The subcutaneous layer was closed with 2-0 Vicryl. The skin was closed with skin idalia. Patient tolerated the procedure well. There were no complications. Complications: none Post-operative Condition: stable Disposition: PACU Plan for aftercare: Admit to inpatient hospital
[2019-10-02] MEDS: HYDROMORPHONE 2 MG INJ IV ×3 (14:23→14:40)
[2019-10-02] MEDS: fentaNYL 100 MCG/2 ML INJ IV ×2 (14:23→14:28)
[2019-10-02] MEDS: OXYCODONE/ACETAMINOPHEN 5/325 TABLET 1 TAB PO (14:45)
[2019-10-02] MEDS: hydrOXYzine pamoate 25 MG CAPSULE PO ×2 (14:46→18:44)
--- NOTE | 2019-10-02 15:35 | SUR.PHASEI ---
Pt transferred to room 221 via bed with all belongings. Pt's last vital signs stable, pain at tolerable level for pt; see flowsheet documentation for details. Report given to JÚNIOR Willis prior to transfer. Alba to assume care of pt at this time.
[2019-10-02] MEDS: OXYCODONE IR 10 MG TABLET PO ×3 (15:51→21:43)
[2019-10-02] MEDS: GABAPENTIN 300 MG CAPSULE PO ×2 (15:51→20:45)
[2019-10-02] MEDS: SODIUM CHLORIDE 0.9% 1,000 ML 100 ML IV (15:52)
[2019-10-02] MEDS: HYDROMORPHONE 1 MG INJ 0.5 MG IV (17:51)
[2019-10-02] MEDS: SENNOSIDES 8.6 MG TABLET 17.2 MG PO (20:45)
[2019-10-02] MEDS: DOCUSATE 100 MG CAPSULE PO (20:45)
[2019-10-03] MEDS: SODIUM CHLORIDE 0.9% 1,000 ML 100 ML IV (00:08)
[2019-10-03] MEDS: OXYCODONE IR 10 MG TABLET PO ×4 (00:59→09:47)
[2019-10-03] MEDS: hydrOXYzine pamoate 25 MG CAPSULE PO ×2 (00:59→11:16)
[2019-10-03 03:52] VITALS: BP 104/54; PULSE 111; RESP 19; TEMP 36.6; O2SAT 98
[2019-10-03] MEDS: CEFAZOLIN 2 GM/100 ML FROZ.PIGGY IV (04:00)
--- NOTE | 2019-10-03 06:11 | PC.NURSE ---
Patient complains of 8/10 pain when moving, ice packs applied and 10mg oxycodone given Q3. IS encouraged, SCD's applied. Dressing is clean/dry and intact. VSS. Patient is up to bathroom with FWW. Bed is low and locked, call light is within reach.
[2019-10-03 07:01] VITALS: BP 119/60
--- NOTE | 2019-10-03 08:17 | PM.PNPO.1 ---
Subjective Subjective Date Patient Seen: 10/03/19 Time Patient Seen: 08:17 Interval history: Patient's pain is well controlled. Denies fever chills. No nausea vomiting. Patient has not yet worked with physical therapy but has been up walking in the room with assistance. She would like to go home today if safe to do so. Otherwise without complaints. Exam Vital Signs (past 8 hours): - 10/03/19 03:52 10/03/19 07:01 Temperature 98 F Pulse Rate 111 H Respiratory Rate 19 Blood Pressure 104/54 L 119/60 Pulse Oximetry 98 Oxygen Delivery Method Room Air Oxygen Flow Rate 0 Narrative Exam Narrative: 29-year-old female resting comfortably in bedside chair in no apparent distress. Lumbar dressing is clean, dry and intact. Motor functions intact bilateral lower extremities. Sensation grossly intact to light touch bilateral lower extremities. Assessment & Plan Post-op Postoperative Procedures: Procedures Operation Date: 10/02/19 11:15 Actual Procedures Side Surgeon p L5-S1 Transforaminal Lumbar Interbody Fusion and cage placement David Downs MD Postop day 1. Patient progressing as expected. Mobilize with physical therapy. Likely discharge home later today. Quality VTE Deep Vein Thrombosis/Pulmonary Embolism Present on Admission: No
[2019-10-03] MEDS: ASCORBIC ACID 500 MG TABLET PO (08:58)
[2019-10-03] MEDS: GABAPENTIN 300 MG CAPSULE PO (08:58)
[2019-10-03] MEDS: CHOLECALCIFEROL (VITAMIN D3) 1,000 UNIT TABLET 2000 UNIT PO (08:58)
[2019-10-03] MEDS: DOCUSATE 100 MG CAPSULE PO (08:59)
--- NOTE | 2019-10-03 09:35 | PT.IIE ---
Current Diagnoses Spinal stenosis, lumbar region without neurogenic claudication (10/02/19) Other intervertebral disc displacement, lumbar region (10/02/19) Other specified postprocedural states (10/02/19) Surgery Performed Operation Date: 10/02/19 11:15 Actual Procedures p L5-S1 Transforaminal Lumbar Interbody Fusion and cage placement - David Downs MD Surgical History (Last Updated 09/18/19 @ 09:32 by Betsey Ledbetter, RN) Hx of microdiscectomy (Acute 02/01/19) Status post tonsillectomy and adenoidectomy Medical History (Last Updated 01/30/19 @ 15:15 by Betsey Ledbetter RN) Herniated disc (Acute) Lumbar radiculopathy (Acute) Numbness (Acute) Right sided sciatica (Acute) Physical Therapy Inpatient Evaluation/Re-Eval M1 PT/OT-IP Prior Functional Status Start: 10/03/19 11:48 Freq: NEEDED Status: Active Protocol: Document 10/03/19 09:35 [facility] (Rec: 10/03/19 12:00 [facility] [id number]) Medical Review Prior Functional Status Medical History Reviewed Yes Communication able to make needs known Mobility and Gait pt stated that she is independent with all mobilities and ambulation without AD Social History Household Members spouse Living Arrangements Apartment/Condo Number of Floors (Floors) One Floor Number of Stairs To Enter/Railing? 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 Additional Social History Comment pt stated that she works at [employer] M2 PT-IP Current Condition Start: 10/03/19 11:48 Freq: NEEDED Status: Active Protocol: Document 10/03/19 09:35 [facility] (Rec: 10/03/19 12:00 AB [id number]) Physical Therapy Current Condition Current Condition Evaluation Date 10/03/19 Treatment Diagnosis s/p L5S1 fusion/lami; difficulty in walking Onset Date 10/02/19 Precautions Lumbar Precautions Log Roll,No Twisting,Limit Bending,Lifting Restriction of 10 lbs,Gait Belt above Incisional Area M3 PT-IP Subjective Start: 10/03/19 11:48 Freq: NEEDED Status: Active Protocol: Document 10/03/19 09:35 [facility] (Rec: 10/03/19 12:00 AB [id number]) Subjective Physical Therapy Visit Type Type Initial Evaluation Visit Start Time 09:35 Visit Stop Time 09:54 Total Visit Minutes 19 Number of TECHNICAL SALES REPRESENTATIVE Visits 0 Physical Therapy Visit Comments Patient Comments pt agreeable to do PT Therapy Pain Assessment Pain When Pain Assessed At Rest Pain Present Pain Present Pain Reported Location LBP Intensity 6 Scale Used Numeric (1 - 10) Pain Management Techniques Apply Cold,Re-positioning, Timing of Activity with Medications M4 PT-IP Mobility and Gait Start: 10/03/19 11:48 Freq: NEEDED Status: Active Protocol: Document 10/03/19 09:35 [facility] (Rec: 10/03/19 12:00 AB [id number]) PT-Bed Mobility Assessment Rolling Type of Rolling Log Rolling Level of Assist Standby Assistance Supine to Sit Supine to Sit Standby Assistance Sit to Supine Sit to Supine Standby Assistance Scooting Scooting to Edge of Bed Standby Assistance PT-Transfer Assessment Sit to and From Stand Sit to and from Stand Standby Assistance Equipment Transfer Assistive Device None,Gait Belt,Front Wheeled Walker Orthotic/Prosthetic Devices or Brace: No Comments Mobility Comments spouse in room with pt. pt able to recall her precautions and log roll bed mobility. completed log roll supine to sit SBA. completed sit to stand from bed SBA and ambulation ~ 300 ft using FWW. completed up/down platform step using FWW SBA and ambulated back to the room using FWW ~ 300 ft. completed in room ambulation without AD SBA ~ 20 ft. pt requested to go back to bed after PT session and completed sit to supine log roll SBA. positioned pt in bed. ice pack provided. call light and tabe placed within reach. Gait Assessment Gait Gait Assistance Required: Standby Assistance Distance (Feet) 300 Able to Maintain Weight Bearing Status Yes During Gait Assistive Devices Assistive Device None,Gait Belt,Front Wheeled Walker Orthotic/Prosthetic Devices or Brace: No Factors Limiting Gait Function Factors Limiting Gait Function Limited Range of Motion,Pain Comments Gait Comments pls refer to mobility section for details Stair Climbing Assessment Evaluation Level of Assist On Stairs Standby Assistance Devices Stair Climbing Assistive Devices Front Wheel Walker Technique/Endurance Stair Climbing Direction Ascend and Descend Stair Climbing Technique Step to Step Number of Steps Climbed 1 Query Text: Stair Climbing Set # Repetitions (reps) 1 PT-Balance Assessment Sitting Balance and Reactions Static Sitting Balance Ability Normal Dynamic Sitting Balance Ability Normal Standing Balance and Reactions Static Standing Balance Ability Good Dynamic Standing Balance Ability Good Device Used FWW M5 PT-IP Objective Assessments Start: 10/03/19 11:48 Freq: NEEDED Status: Active Protocol: Document 10/03/19 09:35 [facility] (Rec: 10/03/19 12:00 [id number]) Orientation Orientation/Cognition Level of Alertness Alert Orientation Name,Age,Birthday,Month,Date, Year,Day of Week,Place, Situation Language Function Ability No Deficits Noted Safety Awareness Understands Safety Issues Memory Description No Deficits Noted Gross Range of Motion Lower Extremity ROM Assessment Within Functional Limits Strength Comments Strength Comments RLE: 4-/5 LLE: 3+/5 Coordination Assessment Gross Coordination Gross Coordination WNL Sensation Assessment Sensation Gross Sensation Left LE Impaired Light Touch Impaired Sensation Description Numbness Muscle Tone Muscle Tone WNL No M6 PT-IP Treatment Start: 10/03/19 11:48 Freq: NEEDED Status: Active Protocol: Document 10/03/19 09:35 [facility] (Rec: 10/03/19 12:00 [id number]) Physical Therapy Treatment Education Education Provided Precautions,Weight Bearing Status,Post-Op Packet,Safety M7 PT-IP Assessment and Plan Start: 10/03/19 11:48 Freq: NEEDED Status: Active Protocol: Document 10/03/19 09:35 [facility] (Rec: 10/03/19 12:00 [id number]) PT Summary Assessment and Plan Potential Rehabilitation Potential Excellent Status of Condition at Evaluation Stable Summary Impairments Pain,ROM,Strength,Balance, Coordination,Sensation,Tone, Cognition,Bed Mobility, Transfers,Gait,Activity Tolerance Assessment Summary pt requires SBA with mobility and is aware of her precautions. pt plans to go home today with spouse to assist her. pt may go home when medically stable. Goals Bed Mobility Goal Independent Transfer Goal Independent Gait Goal Independent Gait Distance 350 Other Goals up/down 1 step without AD SBA Days to Meet Goals 3 Frequency of Treatment Frequency Of Treatment Twice a Day Treatment Plan Physical Therapy Treatment Plan Bed Mobility Training,Transfer Training,Gait Training, Therapeutic Exercise,Balance Retraining,Post Op Education, Discharge Planning,Hot or Cold Pack,Neuromuscular Re-ed, Coordination Retraining,Manual Therapy Recommendations To Nursing Amount of Assist Needed Standby Assistance Discharge Recommendations PT Discharge Recommendations Home with Assistance
--- NOTE | 2019-10-03 10:04 | OT.IP.TRT ---
Current Diagnoses Spinal stenosis, lumbar region without neurogenic claudication (10/02/19) Other intervertebral disc displacement, lumbar region (10/02/19) Other specified postprocedural states (10/02/19) Surgery Performed Operation Date: 10/02/19 11:15 Actual Procedures p L5-S1 Transforaminal Lumbar Interbody Fusion and cage placement - David Downs MD Occupational Therapy Treatment Note M3 OT- IP Subjective and Pain Start: 10/03/19 10:00 Freq: Status: Active Protocol: Document 10/03/19 10:00 [facility] (Rec: 10/03/19 10:04 [facility] [id number]) OT- Subjective Occupational Therapy Visit Type Type Administrative Note Visit Start Time 09:53 Visit Stop Time 09:56 Total Visit Minutes 3 Notes Pt not wanting to shower and already dressed when OT attempted to see pt for OT eval . Pt looking to go home and touched base with pt and . Mainly able to suggest best to have a shower chair and assist for showering . Use of wipe for toileting and may want to wear a pad at night. Pt has had back surgery before and has good understanding for OT needs and back precautions. Pt states will be at home to help. No charge.
--- NOTE | 2019-10-03 10:44 | CM.DANOTE ---
DCP: Case received, EMR reviewed and met with patient. Introduced self and role. Was able to meet with patient in her room and obtain baseline history and activity information. , Ricky, was also at bedside. DCP assessment completed with information currently available. Patient is a 29 year old female who admitted yesterday morning to the care of the orthopedic team. PCP: Dr. Devries. Payer: confirmed: [facility]. Patient came to the hospital for a surgical procedure. She had a lumbar L5-S1 Laminectomy. Patient has had chronic history of back pain. Met with patient in her room. She was sitting on the edge of the bed finishing breakfast. , Ricky, was also in the room. She is alert and oriented, she works over at [employer]. P: DCP to continue to follow. She should be able to go home, but will work with P.T. first. She stated that she will be off for a few weeks, has family support. Liliya Ybarra RN/Tool Straightener
[2019-10-03 10:50] VITALS: BP 121/66; PULSE 107; RESP 17; TEMP 36.8; O2SAT 97
--- NOTE | 2019-10-03 11:11 | PM.DS.1 ---
History of Present Illness History of Present Illness Date Patient Seen: 10/03/19 Time Patient Seen: 11:11 Chief complaint: [id number] Narrative: Patient did well with physical therapy. Patient will be discharged home today. Discharge Providers Provider Date of admission: 10/02/19 08:54 Discharge Date: 10/03/19 Primary care physician: Kim Devries MD Consults: 10/02/19 15:33 Consult to Occupational Therapy Evaluate & Treat Comment: Physician Instructions: Evaluate and treat Consult to Physical Therapy Evaluate & Treat Comment: Physician Instructions: Evaluate and Treat Discharge provider: Johann Espinosa PA-C Summary Hospital Course Discharge Diagnosis: Pre-op diagnosis: 1. L5-S1 spinal stenosis 2. L5-S1 facet cyst with radiculopathy 3. Hx of L5-S1 microdiscectomy with epidural scarring Hospital Course: Procedure: 1. L5-S1 Postero-lateral and posterior interbody fusion 2. L5-S1 interbody cage placement. 3. L5-S1 decompressive laminectomy with bilateral facetecomies 4. L5-S1 Posterior non-segmental instrumentation 5. [place] of bone marrow from iliac crest 6. Utilization of microsurgical technique and operating microscope Same procedure as scheduled: No Indications: Patient has been having chronic back pain and worsening lumbar radiculopathy. Patient failed multiple conservative management with worsening pain weakness and numbness in her lower extremity. Patient has been having difficulty performing activity of daily living. After discussing risks benefits of treatment options, patient elected proceed with surgery. Surgeon: David Downs [facility] Management Consultant: Martina Dixon Click Yes if Unassisted: No Anesthesia Type: General Operative Notes Closure Type: primary Specimen(s): none sent Prosthetic devices, grafts, tissues, transplants, or devices: Globus revolve screws, Rise cage Estimated Blood Loss (mL): 50 Blood products transfused: none Patient admitted to the hospital for the above-mentioned procedure. Patient consented to the same. Patient taken operating room yesterday underwent lumbar fusion. Patient back in her room recovering well as in stable condition. Patient worked with physical therapy she is mobilizing well. Patient discharged home today in stable condition. Status at Discharge Cognitive/behavioral status at discharge: at baseline, oriented Functional status at discharge: uses cane/walker Overall status at discharge: patient is progressing back to baseline Time Spent with Patient Time spent: Less than 30 minutes Exam Vital Signs (past 8 hours): - 10/03/19 03:52 10/03/19 07:01 10/03/19 10:50 Temperature 98 F 98.3 F Pulse Rate 111 H 107 H Respiratory Rate 19 17 Blood Pressure 104/54 L 119/60 121/66 Pulse Oximetry 98 97 Oxygen Delivery Method Room Air Oxygen Flow Rate 0 Narrative Exam Narrative: See progress note Discharge Plan Discharge Plan Patient Disposition: Home Discharge orders & Medications Prescriptions: New docusate sodium [DOK] 100 mg Capsule 100 mg PO BID Qty: 10 RF: 0 hydroxyzine pamoate 25 mg Capsule 25 mg PO Q4HR PRN (Reason: Nausea And Vomiting) Qty: 30 RF: 0 oxycodone 10 mg Tablet 10 mg PO Q3HR PRN (Reason: Pain, Severe (7-10)) Qty: 45 RF: 0 Continued gabapentin 300 mg capsule 300 mg PO TID Qty: 90 RF: 3 cholecalciferol (vitamin D3) 2,000 unit capsule 2,000 unit PO DAILY RF: 0 ascorbic acid (vitamin C) [Vitamin C] 500 mg Capsule, Extended Release 500 mg PO DAILY RF: 0 Multi Complete with Iron 18-400 mg-mcg Tablet 1 tab PO DAILY RF: 0 famotidine [Pepcid] 20 mg Tablet 20 mg PO BEDTIME RF: 0 drospirenone-ethinyl estradiol [Ocella] 3-0.03 mg Tablet 1 tab PO DAILY RF: 0 Discontinued cyclobenzaprine 10 mg tablet See Rx Instructions .ROUTE .COMPLEX Qty: 30 RF: 0 tramadol 50 mg Tablet 50 mg PO BID PRN (Reason: Pain) RF: 0 Follow up/Referrals: David Downs MD [Physician] - (2 wks) Kim Devries MD [Primary Care Provider] - Discharge Health Status Multidrug resistant organism: No MDRO Diet/Activity/Treatments Diet: Diet as Tolerated Activity: Limit bending, lifting, twisting Cold/Heat Therapy: ice as needed Skin/Wound/Dressing Care Report to your healthcare provider any signs of infection, such as:: chills, fever, increased pain, unusual drainage and unusual redness Dressing: keep clean and dry Visit Report/Discharge Packet Instructions: DI for Transforaminal Lumbar Interbody Fusion Discharge Data Primary Care Provider: Kim Devries Quality VTE Deep Vein Thrombosis/Pulmonary Embolism Present on Admission: No
--- NOTE | 2019-10-03 11:35 | PC.NURSE ---
Addendum entered by Demi Nowak R.N. 10/03/19 11:47: DC - reviewed dc instructions with pt and spouse, paperwork provided, iv dc'd, script for oxycodone provided, vistaril and hector were sent electronically to [facility], belongings gathered, including cell phone, tablet and cardiac cath technician, clothing, shoes, tsf to and escorted to spouse's car by sawing and assembly supervisor. Original Note: AM NOTE - pt is alert, states back discomfort 5 on scale 0/10, does have hx numbness behind l knee, thigh prior to surgery, +bt, no nausea, discussed constipation and narcotics, has laxatives at home, hr 96, ra 97%, discussed dsg with Johann JIMENEZ and reinforced barrier dsg removed, parallel stapled incisions intact, w/o redness or drainage, replaced with coversite, cleared for dc home by phys therapy, given 10mg oxycodone when requested, also prior to discharge home given 25mg po vistaril.
== END 2019-10-03 11:45 | disposition home or self-care (01) | DRG 454 ==
PROVIDERS: Admitting Provider Orthopaedic Surgery Orthopaedic Surgery of the Spine; PCP Family Medicine; Visit Provider Orthopaedic Surgery Orthopaedic Surgery of the Spine
PROC: 0SG30AJ Fusion of Lumbosacral Joint with Interbody Fusion Device, Posterior Approach, Anterior Column, Open Approach (ICD-10-PCS; principal; 2019-10-02 11:15)
DX: M48.07 Spinal stenosis, lumbosacral region (principal); Z68.41 Body mass index [BMI] 40.0-44.9, adult; M48.062 Spinal stenosis, lumbar region with neurogenic claudication; M51.26 Other intervertebral disc displacement, lumbar region; E66.01 Morbid (severe) obesity due to excess calories; M85.48 Solitary bone cyst, other site
CPT/HCPCS: 72100; 76000; 97161; C1776; C9290; J0330; J0690; J1100; J1170; J2250; J2405; J2704; J3010

== ENCOUNTER → 2020-08-28 | Outpatient (CLI) | payer OTHER, SELFPAY ==
[2020-05-15 10:03] VITALS: BMI 41.1
== END ==
PROVIDERS: PCP Family Medicine; Referring Provider Internal Medicine; Visit Provider Internal Medicine
DX: Z23 Encounter for immunization (principal)
CPT/HCPCS: 90471; 90686

== ENCOUNTER → 2020-11-07 14:16 | Outpatient (CLI) | payer OTHER, SELFPAY ==
[2020-05-15 10:03] VITALS: BMI 41.1
[2020-11-07] MEDS: COVID-19 VACC(MODERNA-1)/PF 100 MCG/0.5 ML VIAL IM (14:21)
== END ==
PROVIDERS: PCP Family Medicine; Visit Provider Internal Medicine
DX: Z23 Encounter for immunization (principal)
CPT/HCPCS: 0011A; 91301

== ENCOUNTER → 2020-11-22 08:33 | Outpatient (CLI) | payer OTHER, SELFPAY ==
[2020-05-15 10:03] VITALS: BMI 41.1
--- NOTE | 2020-11-22 08:37 | DI.CT.S_ITS ---
PROCEDURE: CT LUMBAR SPINE WO CON INDICATIONS: Radiculopathy, lumbosacral region TECHNIQUE: Noncontrast 3 mm thick sections acquired from the T12 level to the sacrum. Sagittal and coronal reformats were constructed. For radiation dose reduction, the following was used: automated exposure control. COMPARISON: [facility] [place], CR, XR LUMBAR SPINE 2 OR 3 VIEWS, 09/12/2020, 16:30. [facility] [place], CR, XR LUMBAR SPINE 2 OR 3 VIEWS, 05/23/2020, 8:44. [facility] [place], CR, XR LUMBAR SPINE 2 OR 3 VIEWS, 11/16/2019, 9:42. [facility], CR, XR LUMBAR SPINE 2-3V, 10/02/2019, 14:39. [facility], CR, XR LUMBAR SPINE 2-3V, 02/01/2019, 15:06. [facility] [place], MR, MR LUMBAR SPINE WITHOUT CONTRAST, 01/06/2019, 7:12. [facility] [place], MR, MR LUMBAR SPINE WITHOUT CONTRAST, 06/16/2019, 7:13. FINDINGS: Image quality: Excellent. Bones: There is normal bony alignment. No acute vertebral body compression fractures. No suspicious lytic or blastic bony lesions. Central spinal caliber is of normal overall caliber. No pars defects. T12-L1: Normal. L1-L2: Normal. L2-L3: Normal. L3-L4: Normal. L4-L5: The disc height is well preserved. Mild disc bulge is seen, with a mild central disc protrusion. A mild facet [id number] bilateral neural foraminal narrowing can be seen. Mild central canal narrowing is seen. When comparison is made with the prior examination, these findings are similar. L5-S1: Bilateral pedicle screws are seen at this level. The screws appear well placed. Vertical fixation rods are seen. There is also a disc spacer seen. No findings of hardware failure or hardware loosening are seen. There has been removal of portions of the posterior elements. Ossification can be seen along the posterior aspect the disc, as on series 8, image 39. There is moderate right-sided and mild left-sided neural foraminal narrowing seen. No significant central canal narrowing is seen. The degrees of neural foraminal narrowing and central canal narrowing are improved compared to the preoperative MRI. Soft tissues: No retroperitoneal masses or hematomas. Visualized aorta is normal in caliber. A normal appendix is incidentally noted. IMPRESSION: Unremarkable L5-S1 postoperative change, with improvement at this level compared to the preoperative MRI. Dictated by: Bj Poon M.D. on 11/22/2020 at 10:11 Approved by: Bj Poon M.D. on 11/22/2020 at 10:15
== END ==
PROVIDERS: PCP Family Medicine; Referring Provider Orthopaedic Surgery Orthopaedic Surgery of the Spine; Visit Provider Orthopaedic Surgery Orthopaedic Surgery of the Spine
DX: M54.17 Radiculopathy, lumbosacral region (principal)
CPT/HCPCS: 72131

== ENCOUNTER → 2020-12-04 15:56 | Outpatient (CLI) | payer OTHER, SELFPAY ==
[2020-05-15 10:03] VITALS: BMI 41.1
[2020-12-04] MEDS: COVID-19 VACC #2, MRNA(MOD) 100 MCG/0.5 ML VIAL IM (16:00)
== END ==
PROVIDERS: PCP Family Medicine; Visit Provider Internal Medicine
DX: Z23 Encounter for immunization (principal)
CPT/HCPCS: 0012A; 91301

== ENCOUNTER → 2021-01-25 15:14 | Outpatient (CLI) | payer OTHER, SELFPAY ==
[2020-05-15 10:03] VITALS: BMI 41.1
--- NOTE | 2021-01-25 15:16 | DI.MRI.S_ITS ---
PROCEDURE: MR THORACIC SPINE WO CON INDICATIONS: Radiculopathy, lumbar region TECHNIQUE: Noncontrast sagittal T1 spine echo and T2 fast spin echo, sagittal STIR, axial T1 and T2 fast spin echo through the thoracic spine. COMPARISON: None. FINDINGS: Image quality: Excellent. Alignment and Curvature: There is normal bony alignment. Bone Marrow: Diffuse, minimally speckled increased T1 and T2 marrow signal throughout T8 with maintenance of normal vertebral body height and morphology. Marrow is otherwise of normal overall signal. No acute vertebral body compression fractures. Spinal Cord: Visualized spinal cord is normal in size and signal. The conus is at T12-L1. Paraspinous Soft Tissues: No paravertebral masses. Miscellaneous: On axial images, central canal and foramina appear widely patent at all scanned levels. IMPRESSION: 1. T8 vertebral body hemangioma. 2. Otherwise normal thoracic spine. Dictated by: Caryn Obando M.D. on 01/27/2021 at 10:15 Approved by: Caryn Obando M.D. on 01/27/2021 at 10:50
== END ==
PROVIDERS: PCP Family Medicine; Referring Provider Physical Medicine & Rehabilitation; Visit Provider Physical Medicine & Rehabilitation
DX: M54.16 Radiculopathy, lumbar region (principal); D18.09 Hemangioma of other sites
CPT/HCPCS: 72146

== ENCOUNTER → 2021-02-24 10:06 | Outpatient (CLI) | payer OTHER, SELFPAY ==
[2020-05-15 10:03] VITALS: BMI 41.1
[2021-02-24 11:50] LABS: COVID19 -Nasal RAPID Negative (Negative)
== END ==
PROVIDERS: PCP Family Medicine; Visit Provider Physician Assistant
DX: Z01.812 Encounter for preprocedural laboratory examination (principal); Z20.822 Contact with and (suspected) exposure to COVID-19
CPT/HCPCS: 87635

== ENCOUNTER → 2021-09-19 09:00 | Outpatient (CLI) | payer OTHER, SELFPAY ==
[2020-05-15 10:03] VITALS: BMI 41.1
[2021-09-19] MEDS: COVID-19 VACC #3, MRNA(MOD) 50 MCG/0.25 ML VIAL IM (09:02)
== END ==
PROVIDERS: PCP Family Medicine; Visit Provider Internal Medicine
DX: Z23 Encounter for immunization (principal)
CPT/HCPCS: 0013A; 91301

== ENCOUNTER → 2021-09-23 10:54 | Outpatient (CLI) | payer OTHER, SELFPAY ==
[2020-05-15 10:03] VITALS: BMI 41.1
== END ==
PROVIDERS: PCP Family Medicine; Referring Provider Internal Medicine; Visit Provider Internal Medicine
DX: Z23 Encounter for immunization (principal)
CPT/HCPCS: 90471; 90686

== ENCOUNTER → 2021-11-17 11:20 | Outpatient (CLI) | payer OTHER, SELFPAY ==
[2020-05-15 10:03] VITALS: BMI 41.1
[2021-11-17 15:04] LABS: COVID19 -Nasal RAPID Negative (Negative)
== END ==
PROVIDERS: PCP Family Medicine; Referring Provider Family Medicine; Visit Provider Family Medicine
DX: Z20.822 Contact with and (suspected) exposure to COVID-19 (principal)
CPT/HCPCS: 87635

== ENCOUNTER → 2022-03-11 14:13 | Outpatient (CLI) | payer OTHER, SELFPAY ==
[2020-05-15 10:03] VITALS: BMI 41.1
[2022-03-11 15:29] LABS: Add Manual Diff / Slide Review NO; Basophils Absolute Auto 100 /uL (0-100); Basophils Percent Auto 0.8 % (0-2); Eosinophils Absolute Auto 100 /uL (0-450); Eosinophils Percent Auto 1.1 % (2-4); Hematocrit 39.6 % (36-46); Hemoglobin 13.5 g/dL (12.0-16.0); Lymphocytes Absolute Auto 4500 /uL (1100-4500); Lymphocytes Percent Auto 44.4 % (25-40); Mean Corpuscular HGB Conc 34.2 % (30-36); Mean Corpuscular Hemoglobin 31.4 PG (26-34); Mean Corpuscular Volume 91.9 fL (80-100); Monocytes Absolute Auto 500 /uL (0-900); Monocytes Percent Auto 4.5 % (3-14); Neutrophils Absolute Auto 5000 /uL (1500-7000); Neutrophils Percent Auto 49.2 % (50-75); Platelet Count 295 X10^3/uL (150-400); Red Blood Cell Count 4.31 X10^6/uL (4.0-5.2); Red Cell Distribution Width 13.6 % (11.6-14.8); White Blood Cell Count 10.2 X10^3/uL (4.5-11.0)
[2022-03-11 16:26] LABS: Prothrombin Time 11.6 SECONDS (10.1-12.7)
[2022-03-11 16:35] LABS: BUN Creatinine Ratio 14.3 (6-22); Blood Urea Nitrogen 9 mg/dL (7-17); Calcium 9.3 mg/dL (8.4-10.2); Carbon Dioxide 21 mmol/L (22-32); Chloride 105 mmol/L (98-107); Estimated Glomerular Filt Rate > 60 mL/min (>60); Glucose 91 mg/dL (70-100); HEMOLYSIS < 15 (0-50); Potassium 3.7 mmol/L (3.4-5.1); Sodium 135 mmol/L (137-145)
== END ==
PROVIDERS: PCP Family Medicine; Referring Provider Physical Medicine & Rehabilitation; Visit Provider Physical Medicine & Rehabilitation
DX: Z01.818 Encounter for other preprocedural examination (principal); Z01.812 Encounter for preprocedural laboratory examination; Z51.81 Encounter for therapeutic drug level monitoring
CPT/HCPCS: 36415; 80048; 85025; 85610; 93005

== ENCOUNTER → 2022-09-09 11:14 | Outpatient (CLI) | payer OTHER, SELFPAY ==
[2020-05-15 10:03] VITALS: BMI 41.1
== END ==
PROVIDERS: PCP Family Medicine; Referring Provider Internal Medicine; Visit Provider Internal Medicine
DX: Z23 Encounter for immunization (principal)
CPT/HCPCS: 90471; 90686

== ENCOUNTER → 2022-12-15 08:58 | Outpatient (CLI) | payer OTHER, SELFPAY ==
[2020-05-15 10:03] VITALS: BMI 41.1
[2022-12-15 10:41] LABS: COVID-19 CEPHEID 4-PLEX PCR Negative (Negative); Influenza A - CEPHEID Flu A NEGATIVE (NEGATIVE); Influenza B - CEPHEID Flu B NEGATIVE (NEGATIVE); Respiratory Syncytial Virus Negative (Negative)
== END ==
PROVIDERS: PCP Family Medicine; Visit Provider Nurse Practitioner Family
DX: G89.29 Other chronic pain (principal); R05.9 Cough, unspecified; R09.81 Nasal congestion; R51.9 Headache, unspecified; R68.83 Chills (without fever); Z20.822 Contact with and (suspected) exposure to COVID-19
CPT/HCPCS: 0241U

== ENCOUNTER → 2023-06-09 09:23 | Outpatient (CLI) | payer OTHER, SELFPAY ==
[2020-05-15 10:03] VITALS: BMI 41.1
--- NOTE | 2023-06-09 09:25 | DI.RAD.S_ITS ---
PROCEDURE: XR LUMBAR SPINE 2-3V INDICATIONS: stimulator in place, lead confirmation, increased sx TECHNIQUE: 3 views of the lumbar spine were acquired. COMPARISON: [facility], CR, XR LUMBAR SPINE 2-3V, 10/02/2019, 14:39. FINDINGS: Bones: 5 [id number] vertebrae are present. Status post posterior fusion at L5-S1 with interbody disc spacer. No evidence of hardware complication. Alignment is anatomic. No vertebral body compression fractures. No suspicious bony lesions. Soft tissues: Overlying bowel gas pattern is normal. Partially visualized spinal cord stimulator in place. IMPRESSION: Status post L5-S1 posterior fusion and interbody disc spacer without evidence of hardware complication. Partially visualized spinal cord stimulator in place. Approved by: Constance Tse M.D. on 06/09/2023 at 20:02
--- NOTE | 2023-06-09 09:25 | DI.RAD.S_ITS ---
PROCEDURE: XR THORACIC SPINE 3V INDICATIONS: stimulator in place, lead confirmation, increased sx TECHNIQUE: 3 views of the thoracic spine were acquired. COMPARISON: Same day acquired lumbar spine radiographs 06/09/2023. FINDINGS: Bones: No fractures or dislocations. No suspicious bony lesions. 12 pairs of ribs are noted, and appear intact where visualized. Soft tissues: No paravertebral stripe thickening. Spinal cord stimulator terminating at T8-T9 level, which appears in appropriate position. IMPRESSION: Partially visualized spinal cord stimulator terminating at T8-T9 level, which appears in appropriate position. Approved by: Constance Tse M.D. on 06/09/2023 at 20:05
== END ==
PROVIDERS: PCP Family Medicine; Referring Provider Family Medicine; Visit Provider Family Medicine
DX: M51.36 Other intervertebral disc degeneration, lumbar region (principal); Z98.1 Arthrodesis status; Z96.82 Presence of neurostimulator
CPT/HCPCS: 72072; 72100

== ENCOUNTER → 2023-08-03 03:57 | Outpatient (CLI) | payer OTHER, SELFPAY ==
[2020-05-15 10:03] VITALS: BMI 41.1
== END ==
PROVIDERS: PCP Family Medicine; Referring Provider Family Medicine; Visit Provider Family Medicine
DX: Z23 Encounter for immunization (principal)
CPT/HCPCS: 90471; 90686

== ENCOUNTER → 2023-08-28 08:11 | Outpatient (CLI) | payer OTHER, SELFPAY ==
[2020-05-15 10:03] VITALS: BMI 41.1
[2023-08-28 09:12] LABS: Add Manual Diff / Slide Review NO; Basophils Absolute Auto 100 /uL (0-100); Basophils Percent Auto 1.1 % (0-2); Eosinophils Absolute Auto 200 /uL (0-450); Eosinophils Percent Auto 1.7 % (2-4); Hemoglobin 15.2 g/dL (12.0-16.0); Lymphocytes Absolute Auto 4600 /uL (1100-4500); Mean Corpuscular HGB Conc 34.6 % (30-36); Mean Corpuscular Hemoglobin 32.4 PG (26-34); Mean Corpuscular Volume 93.6 fL (80-100); Monocytes Absolute Auto 600 /uL (0-900); Monocytes Percent Auto 5.2 % (3-14); Neutrophils Absolute Auto 6300 /uL (1500-7000); Platelet Count 297 X10^3/uL (150-400); White Blood Cell Count 11.8 X10^3/uL (4.5-11.0)
[2023-08-28 09:13] LABS: Hemoglobin A1C% w Est Avg Glu 5.7 % (4.0-6.0)
[2023-08-28 09:25] LABS: HEMOLYSIS < 15 (0-50); Iron 116 ug/dL (37-170)
[2023-08-28 09:30] LABS: Alanine Aminotransferase 46 IU/L (<35); Albumin 4.5 g/dL (3.5-5.0); Albumin Globulin Ratio 1.4 (1.0-2.8); Alkaline Phosphatase 60 U/L (38-126); Aspartate Aminotransferase 39 IU/L (14-36); Bilirubin Total 0.4 mg/dL (0.2-1.3); Blood Urea Nitrogen 9 mg/dL (7-17); Calcium 9.6 mg/dL (8.4-10.2); Carbon Dioxide 26 mmol/L (22-32); Chloride 104 mmol/L (98-107); Cholesterol 253 mg/dL (140-199); Estimated Glomerular Filt Rate > 60 mL/min (>60); Globulin 3.3 g/dL (1.7-4.1); Glucose 108 mg/dL (70-100); HDL Cholesterol 58 mg/dL (40-60); HEMOLYSIS < 15 (0-50); LDL Cholesterol Calculated 136 mg/dL (<100); Sodium 138 mmol/L (137-145); Total Protein 7.8 g/dL (6.3-8.2); Triglycerides 296 mg/dL (35-150)
[2023-08-28 09:37] LABS: Percent Iron Saturation 36 % (15-50); Total Iron Binding Capacity 318 ug/dL (265-497); Transferrin 271 mg/dL (206-381)
[2023-08-28 09:42] LABS: Vitamin D 25 Hydroxy (D3) 38.9 ng/mL (30.0-100.0)
[2023-08-28 09:56] LABS: TSH w/ Reflex to FT4 1.05 uIU/mL (0.47-4.68)
[2023-08-28 10:00] LABS: Ferritin 30 ng/mL (6-137)
[2023-08-28 10:14] LABS: Vitamin B12 903 pg/mL (239-931)
== END ==
PROVIDERS: PCP Family Medicine; Referring Provider Family Medicine; Visit Provider Family Medicine
DX: R42 Dizziness and giddiness (principal); L65.9 Nonscarring hair loss, unspecified; E55.9 Vitamin D deficiency, unspecified; E66.9 Obesity, unspecified; G62.9 Polyneuropathy, unspecified
CPT/HCPCS: 36415; 80053; 80061; 82306; 82607; 82728; 83036; 83540; 83550; 84443; 85025

== ENCOUNTER → 2023-12-10 08:54 | Outpatient (CLI) | payer OTHER, SELFPAY ==
[2020-05-15 10:03] VITALS: BMI 41.1
[2023-12-10 10:12] LABS: Alanine Aminotransferase 37 IU/L (<35); Albumin 4.1 g/dL (3.5-5.0); Albumin Globulin Ratio 1.4 (1.0-2.8); Alkaline Phosphatase 56 U/L (38-126); Aspartate Aminotransferase 40 IU/L (14-36); BUN Creatinine Ratio 14.9 (6-22); Bilirubin Total 0.5 mg/dL (0.2-1.3); Blood Urea Nitrogen 7 mg/dL (7-17); Calcium 9.2 mg/dL (8.4-10.2); Carbon Dioxide 23 mmol/L (22-32); Chloride 106 mmol/L (98-107); Estimated Glomerular Filt Rate > 60 mL/min (>60); Glucose 97 mg/dL (70-100); HEMOLYSIS < 15 (0-50); Potassium 3.9 mmol/L (3.4-5.1); Sodium 139 mmol/L (137-145); Total Protein 7.1 g/dL (6.3-8.2)
[2023-12-12 06:08] LABS: x Labcorp Estim. Avg Glu (eAG) 120 mg/dL (.); x Labcorp Hemoglobin A1c 5.8 % (4.8-5.6)
== END ==
PROVIDERS: PCP Family Medicine; Referring Provider Family Medicine; Visit Provider Family Medicine
DX: R74.8 Abnormal levels of other serum enzymes (principal)
CPT/HCPCS: 36415; 80053; 83036

== ENCOUNTER → 2023-12-16 08:20 | Outpatient (CLI) | payer OTHER, SELFPAY ==
[2020-05-15 10:03] VITALS: BMI 41.1
[2023-12-16 09:07] LABS: Influenza A - CEPHEID Flu A NEGATIVE (NEGATIVE); Influenza B - CEPHEID Flu B NEGATIVE (NEGATIVE); Respiratory Syncytial Virus Negative (Negative)
[2023-12-16 09:28] LABS: COVID-19 CEPHEID 4-PLEX PCR Negative (Negative)
== END ==
PROVIDERS: PCP Family Medicine; Visit Provider Physician Assistant
DX: R05.1 Acute cough (principal)
CPT/HCPCS: 0241U

== ENCOUNTER → 2024-01-21 06:44 | Outpatient (CLI) | payer OTHER, SELFPAY ==
[2020-05-15 10:03] VITALS: BMI 41.1
--- NOTE | 2024-01-21 07:00 | DI.US.S_ITS ---
PROCEDURE: US ABDOMEN LIMITED INDICATIONS: elevated liver enzymes TECHNIQUE: Real-time scanning was performed of the abdominal and retroperitoneal organs, with image documentation. COMPARISON: None. FINDINGS: Liver: The liver demonstrates diffusely increased echotexture without focal abnormalities consistent with chronic hepatocellular disease/hepatic steatosis. There is a small focus of hypoechogenicity involving the right inferior liver margin measuring 2.1 x 2.0 x 1.1 cm. No internal vascularity. This may represent a small area of focal fatty sparing. Gallbladder: Gallbladder is normal in sonographic appearance without gallstones, gallbladder wall thickening, pericholecystic fluid, or abnormal sonographic Freitas's. Biliary ducts: Intrahepatic bile ducts are non-dilated. Extrahepatic bile duct caliber measures 6 mm. Normal is 6-7 mm or less in diameter, or 10 mm or less post-cholecystectomy. Pancreas: Visualized portions of the pancreas are sonographically normal. Kidneys: Right kidney is normal in size and echotexture. Right kidney measures 11.7 cm long. No hydronephrosis or nephrolithiasis. No solid masses. IVC: Intrahepatic inferior vena cava is patent. Miscellaneous: No free abdominal fluid. IMPRESSION: Hepatic steatosis with possible 2.1 cm area of focal fatty sparing in the right inferior margin. No acute sonographic abnormalities identified. Dictated by: Kwan Fenton M.D. on 01/21/2024 at 10:18 Approved by: Kwan Fenton M.D. on 01/21/2024 at 10:21
== END ==
LOC: US 06:44
PROVIDERS: PCP Family Medicine; Referring Provider Family Medicine; Visit Provider Family Medicine
DX: K76.0 Fatty (change of) liver, not elsewhere classified (principal); R74.8 Abnormal levels of other serum enzymes
CPT/HCPCS: 76705

== ENCOUNTER → 2024-08-10 16:18 | Outpatient (CLI) | payer OTHER, SELFPAY ==
[2020-05-15 10:03] VITALS: BMI 41.1
== END ==
PROVIDERS: PCP Family Medicine; Referring Provider Internal Medicine; Visit Provider Internal Medicine
DX: Z23 Encounter for immunization (principal)
CPT/HCPCS: 90471; 90656

== ENCOUNTER → 2024-08-28 11:44 | Outpatient (CLI) | payer OTHER, SELFPAY ==
[2020-05-15 10:03] VITALS: BMI 41.1
--- NOTE | 2024-08-28 11:45 | DI.RAD.S_ITS ---
PROCEDURE: XR LUMBAR SPINE 2-3V INDICATIONS: eval back pain TECHNIQUE: 3 views of the lumbar spine were acquired. COMPARISON: [facility], CR, XR LUMBAR SPINE 2-3V, 06/09/2023, 9:32. [facility], CR, XR LUMBAR SPINE 2-3V, 10/02/2019, 14:39. FINDINGS: Bones: L5-S1 pedicle screw fixation with intervertebral body spacer. 5 [id number]-lgf-[id number] vertebrae are present. There is normal bony alignment. No vertebral body compression fractures. No suspicious bony lesions. Soft tissues: Overlying bowel gas pattern is normal. No suspicious soft tissue calcifications. Spine stimulator with thecal leads projecting cephalad. IMPRESSION: Stable L5-S1 pedicle screw fixation. No acute osseous abnormality. Dictated by: Enzo Vann M.D. on 08/28/2024 at 20:36 Approved by: Enzo Vann M.D. on 08/28/2024 at 20:42
== END ==
LOC: RAD 11:45
PROVIDERS: PCP Family Medicine; Referring Provider Family Medicine; Visit Provider Family Medicine
DX: M54.9 Dorsalgia, unspecified (principal)
CPT/HCPCS: 72100

== ENCOUNTER → 2025-05-18 11:10 | Outpatient (CLI) | payer OTHER, SELFPAY ==
[2020-05-15 10:03] VITALS: BMI 41.1
[2025-05-18 12:17] LABS: Hemoglobin A1C% w Est Avg Glu 5.3 % (4.0-6.0)
[2025-05-18 12:39] LABS: Alanine Aminotransferase 25 IU/L (<35); Albumin 4.2 g/dL (3.5-5.0); Albumin Globulin Ratio 1.4 (1.0-2.8); Alkaline Phosphatase 64 U/L (38-126); Blood Urea Nitrogen 9 mg/dL (7-17); Calcium 9.3 mg/dL (8.4-10.2); Carbon Dioxide 24 mmol/L (22-32); Chloride 106 mmol/L (98-107); Estimated Glomerular Filt Rate > 60 mL/min (>60); Globulin 2.9 g/dL (1.7-4.1); Glucose 89 mg/dL (70-99); HEMOLYSIS < 15 (0-50); Potassium 4.1 mmol/L (3.4-5.1); Sodium 138 mmol/L (137-145); Total Protein 7.1 g/dL (6.3-8.2)
== END ==
PROVIDERS: PCP Family Medicine; Referring Provider Family Medicine; Visit Provider Family Medicine
DX: R73.03 Prediabetes (principal); R74.8 Abnormal levels of other serum enzymes
CPT/HCPCS: 36415; 80053; 83036

== ENCOUNTER → 2025-05-21 09:02 | Outpatient (CLI) | payer OTHER, SELFPAY ==
[2020-05-15 10:03] VITALS: BMI 41.1
--- NOTE | 2025-05-21 09:04 | DI.RAD.S_ITS ---
PROCEDURE: XR WRIST LT MIN 3V INDICATIONS: pain TECHNIQUE: 4 views of the wrist were acquired. COMPARISON: None. FINDINGS AND IMPRESSION: No displaced fracture or dislocation is seen. No suspicious soft tissue calcifications. If there is high concern for further derangement, consider MRI evaluation. Dictated by: Leonid Barajas M.D. on 05/21/2025 at 12:04 Approved by: Leonid Barajas M.D. on 05/21/2025 at 12:05
== END ==
PROVIDERS: PCP Family Medicine; Referring Provider Family Medicine; Visit Provider Family Medicine
DX: M25.532 Pain in left wrist (principal)
CPT/HCPCS: 73110

== ENCOUNTER → 2025-08-24 11:09 | Outpatient (CLI) | payer OTHER, SELFPAY ==
[2020-05-15 10:03] VITALS: BMI 41.1
== END ==
PROVIDERS: PCP Family Medicine; Referring Provider Family Medicine; Visit Provider Family Medicine
DX: M25.50 Pain in unspecified joint (principal)
CPT/HCPCS: 36415; 85651; 86140; 86200; 86430